=== PATIENT | female | born 1975 | race Caucasian/White ===

== ENCOUNTER → 2017-05-10 | Day surgery (SDC) | payer MEDICAID ==
[~2017-05-10] VITALS: Ht 167.6 cm; Wt 102.5 kg
[~2017-05-10] MED LIST: BUPIVAcaine 0.5% inj/PF 30 ml vial ONE; HYDROcodone/acetaminophen 10/325mg tab PO ONE; MIDAZolam 5mg/5ml vial ONE; VANCOMYCIN INJ 1000 MG in NORMAL SALINE 250ml IV.SOLN IV ONE; acetaminophen 1,000mg/100ml IV 100 ML IV PRN; acetaminophen 325mg tablet PO ONE; cefazolin/dext.iso 2gm/50ml 50 ML IV ONE; celeCOXIB 100mg capsule PO ONE; cloNIDine hcl/PF 100mcg/ml inj ONE; famotidine 20mg tablet PO ONE; fentaNYL/PF 50MCG/1 ML 2ML syringe IV PRN; fentaNYL/PF 50MCG/1 ML 2ML syringe ONE; gabapentin 300mg capsule PO ONE; ketorolac trometh. 30mg/ml inj. ONE; labetalol 5mg/ml 20ml inj. IV PRN; metoclopramide 10mg tablet PO ONE; morphine 4 MG/ML inj SYRINge IV PRN; ondansetron/PF 4mg/2ml inj IV PRN; oxyCODONE SR 10mg (sust. release) tab PO ONE; propofol inj 20 ML IV ONE; ringers solution, lacted 1,000 ML IV SCH; sevoflurane 250ml liquid IH ONE
[2017-05-10 11:20] VITALS: BP 98/78
[2017-05-10 12:06] LABS: BASOPHILS % (AUTO) 0.6 % (0-1); EOSINOPHILS # (AUTO) 0.4 X10'3 (0-0.9); EOSINOPHILS % (AUTO) 5.9 % (0-6); LYMPHOCYTES # (AUTO) 1.5 X10'3 (1.1-4.8); LYMPHOCYTES % (AUTO) 21.4 % (21-51); MEAN CORPUSCULAR HEMOGLOBIN 30.6 PG (27.0-31.0); MEAN CORPUSCULAR HGB CONC 33.7 % (33.0-36.5); MEAN CORPUSCULAR VOLUME 90.8 FL (78-98); MEAN PLATELET VOLUME 8.5 FL (7.4-10.4); MONOCYTES # (AUTO) 0.5 X10'3 (0-0.9); MONOCYTES % (AUTO) 7.3 % (2-12); NEUTROPHILS # (AUTO) 4.4 X10'3 (1.8-7.7); NEUTROPHILS % (AUTO) 64.8 % (42-75); PRE OP HEMATOCRIT 47.5 % (35.0-45.0); PRE OP PLATELET COUNT 259 X10'3 (140-440); RED BLOOD COUNT 5.23 X10'6 (4.20-5.60); RED CELL DISTRIBUTION WIDTH 13.4 % (11.5-14.5)
[2017-05-10 12:30] LABS: ALBUMIN 3.7 G/DL (3.4-5.0); ALBUMIN/GLOBULIN RATIO 1.2 (1.1-1.5); ALKALINE PHOSPHATASE 52 IU/L (46-116); BLOOD UREA NITROGEN 6 MG/DL (7-18); BUN/CREATININE RATIO 9.1 (6.6-38.0); CALCIUM 9.1 MG/DL (8.5-10.1); CHLORIDE 105 MMOL/L (99-107); CREATININE 0.66 MG/DL (0.40-0.90); PRE OP ALT 24 U/L (30-65); PRE OP ANION GAP 9 (8-16); PRE OP AST 14 U/L (10-37); PRE OP BILIRUB, TOTAL 0.4 MG/DL (0.0-1.0); PRE OP GLUCOSE 105 MG/DL (70-104); PRE OP POTASSIUM 3.5 MMOL/L (3.4-5.1); PRE OP SODIUM 142 MMOL/L (135-145); TOTAL PROTEIN 6.9 G/DL (6.4-8.2); eGFR > 90 ML/MIN
[2017-05-10 12:54] VITALS: BP 98/78
[2017-05-10] MEDS: morphine 4 MG/ML inj SYRINge IV PRN ×3 (15:24→15:48)
[2017-05-10] MEDS: fentaNYL/PF 50MCG/1 ML 2ML syringe IV PRN ×2 (15:27→15:31)
[2017-05-10 16:32] VITALS: BP 128/90
[2017-05-10 16:42] VITALS: BP 126/85
[2017-05-10 16:52] VITALS: BP 115/78
[2017-05-10 17:32] VITALS: BP 127/82
== END | disposition home or self-care (01) ==
LOC: PAS 11:06
PROVIDERS: ATTEND Orthopaedic Surgery
DX: S82.61XA Displaced fracture of lateral malleolus of right fibula, initial encounter for closed fracture (principal); F17.210 Nicotine dependence, cigarettes, uncomplicated; I10 Essential (primary) hypertension; M19.90 Unspecified osteoarthritis, unspecified site; F41.9 Anxiety disorder, unspecified; G89.18 Other acute postprocedural pain; E66.9 Obesity, unspecified; Z68.36 Body mass index [BMI] 36.0-36.9, adult; Z88.6 Allergy status to analgesic agent; Z72.89 Other problems related to lifestyle; Z98.890 Other specified postprocedural states; X58.XXXA Exposure to other specified factors, initial encounter; Y93.89 Activity, other specified; Y92.89 Other specified places as the place of occurrence of the external cause; Y99.8 Other external cause status
CPT/HCPCS: 27792; 36415; 64450; 73590; 76001; 80053; 85025; A6222; A6449; C1713; J0131; J0690; J0735; J1885; J2250; J2270; J2704; J3010; J3370; J3490; J7120; J8597; A7000

== ENCOUNTER 2017-05-28 13:39 | Emergency (ER) | payer MEDICAID ==
[~2017-05-28] VITALS: Ht 167.6 cm; Wt 100.0 kg
[2017-05-28 14:46] LABS: BASOPHILS % (AUTO) 0.6 % (0-1); EOSINOPHILS # (AUTO) 0.4 X10'3 (0-0.9); EOSINOPHILS % (AUTO) 4.8 % (0-6); HEMATOCRIT 44.7 % (35.0-45.0); HEMOGLOBIN 15.2 g/dl (12.0-16.0); LYMPHOCYTES # (AUTO) 1.4 X10'3 (1.1-4.8); LYMPHOCYTES % (AUTO) 18.2 % (21-51); MEAN CORPUSCULAR HEMOGLOBIN 30.7 PG (27.0-31.0); MEAN CORPUSCULAR HGB CONC 34.1 % (33.0-36.5); MEAN CORPUSCULAR VOLUME 90.1 FL (78-98); MEAN PLATELET VOLUME 8.8 FL (7.4-10.4); MONOCYTES # (AUTO) 0.7 X10'3 (0-0.9); MONOCYTES % (AUTO) 8.9 % (2-12); NEUTROPHILS # (AUTO) 5.3 X10'3 (1.8-7.7); NEUTROPHILS % (AUTO) 67.5 % (42-75); PLATELET COUNT 303 X10'3 (140-440); RED BLOOD COUNT 4.96 X10'6 (4.20-5.60); RED CELL DISTRIBUTION WIDTH 12.6 % (11.5-14.5); WHITE BLOOD COUNT 7.9 X10'3 (4.5-11.0)
[2017-05-28 14:56] LABS: INR 0.9 INR; PARTIAL THROMBOPLASTIN TIME 27 SECONDS (22-32); PROTHROMBIN TIME 9.8 SECONDS (9.0-12.0)
[2017-05-28 15:09] LABS: ALANINE AMINOTRANSFERASE 22 U/L (12-78); ALBUMIN 3.3 G/DL (3.4-5.0); ALBUMIN/GLOBULIN RATIO 0.8 (1.1-1.5); ALKALINE PHOSPHATASE 60 IU/L (46-116); ANION GAP 9 (8-16); ASPARTATE AMINO TRANSFERASE 20 U/L (10-37); BILIRUBIN,TOTAL 0.3 MG/DL (0.1-1.0); BLOOD UREA NITROGEN 9 MG/DL (7-18); BUN/CREATININE RATIO 14.3 (6.6-38.0); CALCIUM 9.3 MG/DL (8.5-10.1); CHLORIDE 101 MMOL/L (99-107); CREATININE 0.63 MG/DL (0.40-0.90); GLUCOSE 121 MG/DL (70-104); POTASSIUM 3.8 MMOL/L (3.5-5.1); SODIUM 139 MMOL/L (135-145); TOTAL CARBON DIOXIDE 28.8 MMOL/L (24-32); TOTAL PROTEIN 7.5 G/DL (6.4-8.2); eGFR > 90 ML/MIN
[2017-05-28 17:25] VITALS: BP 123/73
[2017-05-28] MEDS ORDERED: SULF1TAB49 PO (17:50)
[2017-05-28] MEDS ORDERED: HYDR-565 PO (17:50)
[2017-05-28] MEDS ORDERED: CEPH500C5 PO (17:50)
[2017-05-28 18:08] LABS: C-REACTIVE PROTEIN 6.68 MG/DL (0.0-0.5)
== END 2017-05-28 18:27 | disposition home or self-care (01) ==
LOC: ER 13:40
DX: M25.571 Pain in right ankle and joints of right foot (principal); M79.671 Pain in right foot; R50.9 Fever, unspecified; I10 Essential (primary) hypertension; Z88.8 Allergy status to other drugs, medicaments and biological substances; Z79.899 Other long term (current) drug therapy
CPT/HCPCS: 36415; 71045; 80053; 83605; 84145; 85025; 85610; 85651; 85730; 86140; 87040; 99285; A6446; A6449

== ENCOUNTER 2017-06-06 10:50 | Inpatient (IN) | payer MEDICAID ==
[~2017-06-06] VITALS: Ht 167.6 cm; Wt 99.7 kg
[~2017-06-06 10:50] MED LIST changes: -BUPIVAcaine 0.5% inj/PF 30 ml vial ONE; +CEPH500C5 PO; +HYDR-565 PO; -HYDROcodone/acetaminophen 10/325mg tab PO ONE; -MIDAZolam 5mg/5ml vial ONE; +SULF1TAB49 PO; -VANCOMYCIN INJ 1000 MG in NORMAL SALINE 250ml IV.SOLN IV ONE; -acetaminophen 1,000mg/100ml IV 100 ML IV PRN; -acetaminophen 325mg tablet PO ONE; -cefazolin/dext.iso 2gm/50ml 50 ML IV ONE; -celeCOXIB 100mg capsule PO ONE; -cloNIDine hcl/PF 100mcg/ml inj ONE; -famotidine 20mg tablet PO ONE; -fentaNYL/PF 50MCG/1 ML 2ML syringe IV PRN; -fentaNYL/PF 50MCG/1 ML 2ML syringe ONE; -gabapentin 300mg capsule PO ONE; -ketorolac trometh. 30mg/ml inj. ONE; -labetalol 5mg/ml 20ml inj. IV PRN; -metoclopramide 10mg tablet PO ONE; -morphine 4 MG/ML inj SYRINge IV PRN; -ondansetron/PF 4mg/2ml inj IV PRN; -oxyCODONE SR 10mg (sust. release) tab PO ONE; -propofol inj 20 ML IV ONE; -ringers solution, lacted 1,000 ML IV SCH; -sevoflurane 250ml liquid IH ONE
[2017-06-07] VITALS (17 sets, daily range): BP systolic 92–117; BP diastolic 50–82
[2017-06-07] MEDS ORDERED: ringers solution, lacted 1,000 ML IV SCH ×3 (05:00→15:33)
[2017-06-07] MEDS ORDERED: albuterol 2.5 MG/3 ML nebule NEB ONE (05:30)
[2017-06-07] MEDS ORDERED: famotidine 20mg tablet PO ONE (05:30)
[2017-06-07] MEDS ORDERED: ondansetron/PF 4mg/2ml inj IV PRN ×2 (07:25→15:35)
[2017-06-07] MEDS ORDERED: MORPHINE 2MG in 2ml NS syringe IV PRN (07:25)
[2017-06-07] MEDS ORDERED: diphenhydrAMINE 25mg capsule PO PRN (07:25)
[2017-06-07] MEDS ORDERED: acetaminophen 325mg tablet PO PRN (07:25)
[2017-06-07] MEDS ORDERED: bisacodyl 10mg suppository rectal RC PRN (07:25)
[2017-06-07] MEDS ORDERED: magnesium hydroxide 30ml (MOM) UD suspension PO PRN (07:25)
[2017-06-07] MEDS ORDERED: cefazolin/dext.iso 2gm/50ml 50 ML IV SCH (08:00)
[2017-06-07] MEDS ORDERED: acetaminophen 325mg tablet PO ONE (09:44)
[2017-06-07] MEDS ORDERED: vancomycin 1,000mg inj ONE ×2 (12:18→14:08)
[2017-06-07] MEDS ORDERED: BUPIVAcaine/PF 2.5 mg/ml (0.25%) 30ml vial ONE (14:08)
[2017-06-07] MEDS ORDERED: midazolam 2 mg/2 ml injection ONE (14:12)
[2017-06-07] MEDS ORDERED: cloNIDine hcl/PF 100mcg/ml inj ONE (14:18)
[2017-06-07] MEDS ORDERED: sevoflurane 250ml liquid IH ONE (14:40)
[2017-06-07] MEDS ORDERED: MIDAZolam 5mg/5ml vial ONE (14:52)
[2017-06-07] MEDS ORDERED: fentaNYL/PF 50MCG/1 ML 2ML syringe ONE (14:52)
[2017-06-07] MEDS ORDERED: proCHLORperazine 10 MG/2 ml inj IV PRN (15:35)
[2017-06-07] MEDS ORDERED: morphine 4 MG/ML inj SYRINge IV PRN ×2 (15:35)
[2017-06-07] MEDS ORDERED: ondansetron/PF 4mg/2ml inj ONE (15:45)
[2017-06-07] MEDS ORDERED: dexamethasone sod phosphate 4mg/ml inj. ONE (15:45)
[2017-06-07] MEDS ORDERED: propofol inj 20 ML IV ONE (15:45)
[2017-06-07] MEDS: oxyCODONE/APAP 10/325mg tablet PO PRN ×2 (17:04→21:41)
[2017-06-07] MEDS: ketorolac tromethamine 15mg/ml inj. IV SCH ×3 (17:29→20:03)
[2017-06-07] MEDS: potassium cl 20mEq in 1/2 NS 1,000 ML IV SCH ×3 (17:29→18:46)
[2017-06-07] MEDS: multivitamins, therapeutics tablet PO SCH (17:30)
[2017-06-07] MEDS: gabapentin 300mg capsule PO SCH ×3 (17:30→20:03)
[2017-06-07] MEDS: ascorbic acid 500mg tablet PO SCH ×2 (17:30→20:03)
[2017-06-07] MEDS: aspirin 325mg tablet PO SCH (17:31)
[2017-06-07] MEDS: sennosides 8.6mg tablet PO SCH (20:03)
[2017-06-07] MEDS: ceFAZolin 2gm in dextrose, iso 100 ML IV SCH (23:52)
[2017-06-07] MEDS: diphenhydrAMINE 25mg capsule PO PRN (23:58)
[2017-06-08] VITALS (7 sets, daily range): BP systolic 100–128; BP diastolic 54–79
[2017-06-08] MEDS: ketorolac tromethamine 15mg/ml inj. IV SCH ×3 (02:07→13:55)
[2017-06-08] MEDS: oxyCODONE/APAP 10/325mg tablet PO PRN ×6 (02:17→23:37)
[2017-06-08] MEDS: potassium cl 20mEq in 1/2 NS 1,000 ML IV SCH ×3 (05:09→23:25)
[2017-06-08 06:44] LABS: BASOPHILS % (AUTO) 0.1 % (0-1); EOSINOPHILS # (AUTO) 0.2 X10'3 (0-0.9); EOSINOPHILS % (AUTO) 1.5 % (0-6); HEMATOCRIT 40.5 % (35.0-45.0); HEMOGLOBIN 13.9 g/dl (12.0-16.0); LYMPHOCYTES # (AUTO) 0.9 X10'3 (1.1-4.8); LYMPHOCYTES % (AUTO) 8.1 % (21-51); MEAN CORPUSCULAR HEMOGLOBIN 30.8 PG (27.0-31.0); MEAN CORPUSCULAR HGB CONC 34.4 % (33.0-36.5); MEAN CORPUSCULAR VOLUME 89.4 FL (78-98); MONOCYTES # (AUTO) 0.1 X10'3 (0-0.9); MONOCYTES % (AUTO) 1.3 % (2-12); NEUTROPHILS # (AUTO) 9.5 X10'3 (1.8-7.7); PLATELET COUNT 256 X10'3 (140-440); RED BLOOD COUNT 4.53 X10'6 (4.20-5.60); RED CELL DISTRIBUTION WIDTH 12.9 % (11.5-14.5); WHITE BLOOD COUNT 10.7 X10'3 (4.5-11.0)
[2017-06-08 06:59] LABS: ANION GAP 9 (8-16); CHLORIDE 102 MMOL/L (99-107); POTASSIUM 4.6 MMOL/L (3.5-5.1); SODIUM 137 MMOL/L (135-145); TOTAL CARBON DIOXIDE 25.6 MMOL/L (24-32)
[2017-06-08] MEDS: multivitamins, therapeutics tablet PO SCH (08:12)
[2017-06-08] MEDS: gabapentin 300mg capsule PO SCH ×3 (08:12→19:34)
[2017-06-08] MEDS: aspirin 325mg tablet PO SCH (08:12)
[2017-06-08] MEDS: nicotine 21mg patch - 24 hr TD SCH (08:12)
[2017-06-08] MEDS: ascorbic acid 500mg tablet PO SCH ×2 (08:12→19:34)
[2017-06-08 08:57] LABS: ALANINE AMINOTRANSFERASE 20 U/L (12-78); ALBUMIN 3.1 G/DL (3.4-5.0); ALBUMIN/GLOBULIN RATIO 0.9 (1.1-1.5); ALKALINE PHOSPHATASE 51 IU/L (46-116); ASPARTATE AMINO TRANSFERASE 17 U/L (10-37); BILIRUBIN,TOTAL 0.3 MG/DL (0.1-1.0); BLOOD UREA NITROGEN 13 MG/DL (7-18); BUN/CREATININE RATIO 17.6 (6.6-38.0); CALCIUM 8.7 MG/DL (8.5-10.1); CREATININE 0.74 MG/DL (0.40-0.90); GLUCOSE 153 MG/DL (70-104); TOTAL PROTEIN 6.6 G/DL (6.4-8.2); eGFR 86 ML/MIN
[2017-06-08] MEDS: ceFAZolin 2gm in dextrose, iso 100 ML IV SCH ×2 (09:40→16:37)
[2017-06-08] MEDS ORDERED: VANCOMYCIN LEVEL IV ONE (10:30)
[2017-06-08] MEDS: vancomycin inj 1,250 MG in normal saline 250ml IV soln 250 ML IV SCH ×2 (10:57→19:34)
[2017-06-08] MEDS: lactobacillus rhamnosus 10,000 MMU CELLS/CAPSULE PO SCH (19:34)
[2017-06-08] MEDS: sennosides 8.6mg tablet PO SCH (19:36)
[2017-06-08] MEDS: diphenhydrAMINE 25mg capsule PO PRN (22:22)
[2017-06-09] MEDS: ceFAZolin 2gm in dextrose, iso 100 ML IV SCH ×4 (00:06→23:11)
[2017-06-09] MEDS: vancomycin inj 1,250 MG in normal saline 250ml IV soln 250 ML IV SCH ×3 (03:07→20:27)
[2017-06-09] MEDS: oxyCODONE/APAP 10/325mg tablet PO PRN ×5 (03:32→22:50)
[2017-06-09] MEDS: morphine 4 MG/ML inj SYRINge IV PRN ×4 (05:15→21:49)
[2017-06-09 05:36] LABS: BASOPHILS % (AUTO) 0.1 % (0-1); EOSINOPHILS # (AUTO) 0.2 X10'3 (0-0.9); EOSINOPHILS % (AUTO) 2.2 % (0-6); HEMATOCRIT 35.2 % (35.0-45.0); HEMOGLOBIN 11.9 g/dl (12.0-16.0); LYMPHOCYTES # (AUTO) 2.6 X10'3 (1.1-4.8); LYMPHOCYTES % (AUTO) 28.5 % (21-51); MEAN CORPUSCULAR HEMOGLOBIN 30.2 PG (27.0-31.0); MEAN CORPUSCULAR HGB CONC 33.6 % (33.0-36.5); MEAN CORPUSCULAR VOLUME 89.7 FL (78-98); MEAN PLATELET VOLUME 9.3 FL (7.4-10.4); MONOCYTES # (AUTO) 0.5 X10'3 (0-0.9); MONOCYTES % (AUTO) 5.4 % (2-12); NEUTROPHILS # (AUTO) 5.8 X10'3 (1.8-7.7); NEUTROPHILS % (AUTO) 63.8 % (42-75); PLATELET COUNT 208 X10'3 (140-440); RED BLOOD COUNT 3.93 X10'6 (4.20-5.60); RED CELL DISTRIBUTION WIDTH 12.8 % (11.5-14.5); WHITE BLOOD COUNT 9.1 X10'3 (4.5-11.0)
[2017-06-09 06:00] VITALS: BP 119/81
[2017-06-09 06:38] LABS: ALANINE AMINOTRANSFERASE 19 U/L (12-78); ALBUMIN 2.6 G/DL (3.4-5.0); ALKALINE PHOSPHATASE 40 IU/L (46-116); ANION GAP 10 (8-16); ASPARTATE AMINO TRANSFERASE 11 U/L (10-37); BILIRUBIN,TOTAL 0.2 MG/DL (0.1-1.0); BLOOD UREA NITROGEN 13 MG/DL (7-18); BUN/CREATININE RATIO 16.9 (6.6-38.0); CALCIUM 8.2 MG/DL (8.5-10.1); CHLORIDE 107 MMOL/L (99-107); CREATININE 0.77 MG/DL (0.40-0.90); GLUCOSE 98 MG/DL (70-104); POTASSIUM 4.5 MMOL/L (3.5-5.1); SODIUM 143 MMOL/L (135-145); TOTAL CARBON DIOXIDE 25.8 MMOL/L (24-32); TOTAL PROTEIN 5.3 G/DL (6.4-8.2); eGFR 82 ML/MIN
[2017-06-09] MEDS: lactobacillus rhamnosus 10,000 MMU CELLS/CAPSULE PO SCH ×2 (08:11→20:28)
[2017-06-09] MEDS: gabapentin 300mg capsule PO SCH ×3 (08:11→20:28)
[2017-06-09] MEDS: multivitamins, therapeutics tablet PO SCH (08:12)
[2017-06-09] MEDS: ascorbic acid 500mg tablet PO SCH ×2 (08:12→20:28)
[2017-06-09] MEDS: aspirin 325mg tablet PO SCH (08:12)
[2017-06-09] MEDS: nicotine 21mg patch - 24 hr TD SCH (08:12)
[2017-06-09 10:00] VITALS: BP 90/57
[2017-06-09] MEDS ORDERED: VANCOMYCIN LEVEL IV ONE (10:30)
[2017-06-09 17:00] VITALS: BP 95/63
[2017-06-09] MEDS ORDERED: tPA-cathflo 2 MG/2 ml IV flush IVF ONE (19:20)
[2017-06-09] MEDS: sennosides 8.6mg tablet PO SCH (20:28)
[2017-06-09 22:00] VITALS: BP 100/56
[2017-06-10] MEDS: morphine 4 MG/ML inj SYRINge IV PRN ×2 (02:18→07:14)
[2017-06-10] MEDS ORDERED: VANCOMYCIN LEVEL IV ONE (02:30)
[2017-06-10 02:40] LABS: BASOPHILS # (AUTO) 0.1 X10'3 (0-0.2); BASOPHILS % (AUTO) 0.8 % (0-1); EOSINOPHILS # (AUTO) 0.5 X10'3 (0-0.9); EOSINOPHILS % (AUTO) 5.1 % (0-6); HEMATOCRIT 35.8 % (35.0-45.0); LYMPHOCYTES # (AUTO) 2.8 X10'3 (1.1-4.8); LYMPHOCYTES % (AUTO) 30.4 % (21-51); MEAN CORPUSCULAR HEMOGLOBIN 30.3 PG (27.0-31.0); MEAN CORPUSCULAR HGB CONC 33.5 % (33.0-36.5); MEAN CORPUSCULAR VOLUME 90.2 FL (78-98); MEAN PLATELET VOLUME 9.2 FL (7.4-10.4); MONOCYTES # (AUTO) 0.6 X10'3 (0-0.9); MONOCYTES % (AUTO) 6.1 % (2-12); NEUTROPHILS # (AUTO) 5.3 X10'3 (1.8-7.7); NEUTROPHILS % (AUTO) 57.6 % (42-75); PLATELET COUNT 162 X10'3 (140-440); RED BLOOD COUNT 3.97 X10'6 (4.20-5.60); WHITE BLOOD COUNT 9.2 X10'3 (4.5-11.0)
[2017-06-10 02:53] LABS: LARGE PLATELETS FEW; PLATELET ESTIMATE NORMAL
[2017-06-10 02:57] LABS: ALBUMIN 2.7 G/DL (3.4-5.0); ANION GAP 5 (8-16); BLOOD UREA NITROGEN 13 MG/DL (7-18); CALCIUM 8.2 MG/DL (8.5-10.1); CHLORIDE 105 MMOL/L (99-107); CREATININE 0.62 MG/DL (0.40-0.90); GLUCOSE 109 MG/DL (70-104); POTASSIUM 4.2 MMOL/L (3.5-5.1); SODIUM 141 MMOL/L (135-145); TOTAL CARBON DIOXIDE 31.3 MMOL/L (24-32); eGFR > 90 ML/MIN
[2017-06-10] MEDS: vancomycin inj 1,250 MG in normal saline 250ml IV soln 250 ML IV SCH ×3 (03:25→21:31)
[2017-06-10] MEDS: oxyCODONE/APAP 10/325mg tablet PO PRN ×5 (03:52→21:31)
[2017-06-10 06:00] VITALS: BP 101/68
[2017-06-10] MEDS: gabapentin 300mg capsule PO SCH ×3 (07:13→21:31)
[2017-06-10] MEDS: ascorbic acid 500mg tablet PO SCH ×2 (07:13→21:30)
[2017-06-10] MEDS: ceFAZolin 2gm in dextrose, iso 100 ML IV SCH ×3 (07:13→23:41)
[2017-06-10] MEDS: lactobacillus rhamnosus 10,000 MMU CELLS/CAPSULE PO SCH ×2 (07:13→21:30)
[2017-06-10] MEDS: multivitamins, therapeutics tablet PO SCH (07:13)
[2017-06-10] MEDS: nicotine 21mg patch - 24 hr TD SCH (07:14)
[2017-06-10] MEDS: aspirin 325mg tablet PO SCH (07:14)
[2017-06-10 10:00] VITALS: BP 95/55
[2017-06-10 18:00] VITALS: BP 86/55
[2017-06-10] MEDS: sennosides 8.6mg tablet PO SCH (21:31)
[2017-06-10 22:00] VITALS: BP 120/56
[2017-06-11] MEDS: oxyCODONE/APAP 10/325mg tablet PO PRN ×5 (02:03→14:43)
[2017-06-11] MEDS: vancomycin inj 1,250 MG in normal saline 250ml IV soln 250 ML IV SCH ×2 (03:34→11:10)
[2017-06-11 06:00] VITALS: BP 117/80
[2017-06-11 06:49] LABS: ALBUMIN 2.8 G/DL (3.4-5.0); ANION GAP 5 (8-16); BLOOD UREA NITROGEN 7 MG/DL (7-18); BUN/CREATININE RATIO 9.5 (6.6-38.0); CALCIUM 8.6 MG/DL (8.5-10.1); CHLORIDE 104 MMOL/L (99-107); CREATININE 0.74 MG/DL (0.40-0.90); GLUCOSE 88 MG/DL (70-104); POTASSIUM 4.2 MMOL/L (3.5-5.1); SODIUM 143 MMOL/L (135-145); TOTAL CARBON DIOXIDE 33.8 MMOL/L (24-32); eGFR 86 ML/MIN
[2017-06-11] MEDS: ceFAZolin 2gm in dextrose, iso 100 ML IV SCH (09:42)
[2017-06-11] MEDS: nicotine 21mg patch - 24 hr TD SCH (09:43)
[2017-06-11] MEDS: ascorbic acid 500mg tablet PO SCH (09:43)
[2017-06-11] MEDS: gabapentin 300mg capsule PO SCH ×2 (09:43→13:52)
[2017-06-11] MEDS: aspirin 325mg tablet PO SCH (09:43)
[2017-06-11] MEDS: lactobacillus rhamnosus 10,000 MMU CELLS/CAPSULE PO SCH (09:43)
[2017-06-11] MEDS: multivitamins, therapeutics tablet PO SCH (09:43)
[2017-06-11 11:11] VITALS: BP 116/83
[2017-06-11] MEDS ORDERED: PER10325T PO (11:45)
[2017-06-11] MEDS ORDERED: cefazolin/dext.iso 2gm/50ml 50 ML IV SCH (11:52)
[2017-06-11] MEDS ORDERED: ceFAZolin 2gm in dextrose, iso 100 ML IV SCH (13:00)
[2017-06-11] MEDS ORDERED: CefTRIAXone 2gm/D5W 50ml 50 ML IV ONE (13:10)
[2017-06-11] MEDS ORDERED: morphine 10mg/ml inj. IV PRN (14:18)
== END 2017-06-11 18:30 | disposition home or self-care (01) | DRG 711 ==
LOC: EDSTATUS 10:50 → PAS IN 06-07 10:22 → EDSTATUS 06-07 13:00 → ORTHO 4S 06-07 17:21
PROVIDERS: ADMIT Orthopaedic Surgery; ATTEND Orthopaedic Surgery
PROC: 0SPF04Z Removal of Internal Fixation Device from Right Ankle Joint, Open Approach (ICD-10-PCS; principal; 2017-06-07 14:40)
PROC: 02HV33Z Insertion of Infusion Device into Superior Vena Cava, Percutaneous Approach (ICD-10-PCS; 2017-06-08)
DX: T81.4XXA Infection following a procedure, initial encounter (principal); T81.30XA Disruption of wound, unspecified, initial encounter; M86.8X7 Other osteomyelitis, ankle and foot; I10 Essential (primary) hypertension; Z79.82 Long term (current) use of aspirin; Z98.51 Tubal ligation status; Z88.8 Allergy status to other drugs, medicaments and biological substances; Z79.899 Other long term (current) drug therapy; Z91.19 Patient's noncompliance with other medical treatment and regimen; Y83.8 Other surgical procedures as the cause of abnormal reaction of the patient, or of later complication, without mention of misadventure at the time of the procedure; Y92.89 Other specified places as the place of occurrence of the external cause
CPT/HCPCS: 36415; 36569; 76937; 80048; 80053; 80202; 85025; 87070; 87075; 87077; 87186; 97110; 97116; 97161; 97530; A6223; A6449; A7000; J0690; J0696; J0735; J1100; J1885; J2250; J2270; J2405; J2704; J2997; J3010; J3370; J3490; J7030; J7120; Q0163

== ENCOUNTER 2017-06-15 19:22 | Emergency (ER) | payer MEDICAID ==
[~2017-06-15] VITALS: Ht 167.6 cm; Wt 85.2 kg
[~2017-06-15 19:22] MED LIST changes: -CEPH500C5 PO; +PER10325T PO; -SULF1TAB49 PO
[2017-06-15 19:26] VITALS: BP 136/117
[2017-06-15] MEDS ORDERED: ketorolac trometh inj. 60 MG/2 ML VIAL IM ONE (20:00)
== END 2017-06-15 20:34 | disposition home or self-care (01) ==
LOC: ER 19:22
DX: M25.571 Pain in right ankle and joints of right foot (principal); I10 Essential (primary) hypertension; Z98.890 Other specified postprocedural states; Z88.8 Allergy status to other drugs, medicaments and biological substances
CPT/HCPCS: 73610; 96372; 99284; A6449; J1885

== ENCOUNTER 2017-08-02 16:15 | Inpatient (IN) | payer MEDICAID ==
[~2017-08-02] VITALS: Ht 167.6 cm; Wt 92.4 kg
[~2017-08-02 16:15] MED LIST changes: -HYDR-565 PO
[2017-08-02 16:57] LABS: BASOPHILS % (AUTO) 0.1 % (0-1); EOSINOPHILS # (AUTO) 0.1 X10'3 (0-0.9); EOSINOPHILS % (AUTO) 0.7 % (0-6); HEMATOCRIT 43.6 % (35.0-45.0); HEMOGLOBIN 14.7 g/dl (12.0-16.0); LYMPHOCYTES # (AUTO) 0.5 X10'3 (1.1-4.8); LYMPHOCYTES % (AUTO) 3.9 % (21-51); MEAN CORPUSCULAR HEMOGLOBIN 30.5 PG (27.0-31.0); MEAN CORPUSCULAR HGB CONC 33.7 % (33.0-36.5); MEAN CORPUSCULAR VOLUME 90.5 FL (78-98); MEAN PLATELET VOLUME 8.3 FL (7.4-10.4); MONOCYTES # (AUTO) 0.7 X10'3 (0-0.9); MONOCYTES % (AUTO) 5.3 % (2-12); PLATELET COUNT 164 X10'3 (140-440); RED BLOOD COUNT 4.81 X10'6 (4.20-5.60); RED CELL DISTRIBUTION WIDTH 15.2 % (11.5-14.5); WHITE BLOOD COUNT 12.2 X10'3 (4.5-11.0)
[2017-08-02 17:06] LABS: INR 1.1 INR; PARTIAL THROMBOPLASTIN TIME 28 SECONDS (22-32); PROTHROMBIN TIME 11.8 SECONDS (9.0-12.0)
[2017-08-02 17:11] LABS: ALANINE AMINOTRANSFERASE 22 U/L (12-78); ALBUMIN 3.3 G/DL (3.4-5.0); ALBUMIN/GLOBULIN RATIO 0.9 (1.1-1.5); ALKALINE PHOSPHATASE 77 IU/L (46-116); ANION GAP 10 (8-16); ASPARTATE AMINO TRANSFERASE 16 U/L (10-37); BILIRUBIN,TOTAL 0.7 MG/DL (0.1-1.0); BLOOD UREA NITROGEN 8 MG/DL (7-18); BUN/CREATININE RATIO 8.8 (6.6-38.0); CALCIUM 8.2 MG/DL (8.5-10.1); CHLORIDE 94 MMOL/L (99-107); CREATININE 0.91 MG/DL (0.40-0.90); GLUCOSE 179 MG/DL (70-104); SODIUM 132 MMOL/L (135-145); TOTAL CARBON DIOXIDE 27.6 MMOL/L (24-32); TOTAL PROTEIN 6.8 G/DL (6.4-8.2); eGFR 67 ML/MIN
[2017-08-02 17:12] LABS: CLARITY,URINE CLOUDY (Clear); COLOR,URINE YELLOW (Yellow); GLUCOSE, URINE NEGATIVE (Neg); KETONES,URINE 15 mg/dl (Neg); LEUKOCYTE ESTERASE ,URINE NEGATIVE (Neg); NITRITES, URINE NEGATIVE (Neg); OCCULT BLOOD,URINE TRACE-INTACT (Neg); PROTEIN,URINE 100 mg/dl (Neg)
[2017-08-02 17:13] LABS: POTASSIUM 2.5 MMOL/L (3.5-5.1)
[2017-08-02 17:13] LABS: UA COLLECTION TYPE STRAIGHT CATH
[2017-08-02] MEDS ORDERED: potassium Cl 20 mEq SR tablet PO STA (17:16)
[2017-08-02 17:17] LABS: PLATELET ESTIMATE NORMAL; TOTAL CELLS COUNTED 100
[2017-08-02] MEDS ORDERED: potassium 10mEq/100ml NS w/LIDOcaine (10mg/bag) IV ONE (17:20)
[2017-08-02] MEDS ORDERED: piperacillin/tazo 3.375gm/50ml 50 ML IV ONE (17:20)
[2017-08-02] MEDS ORDERED: normal saline 1000ML IV soln IV ONE (17:20)
[2017-08-02] MEDS ORDERED: vancomycin/NS 1 GM ADD-VANTAGE 250 ML IV ONE (17:20)
[2017-08-02 17:30] LABS: MUCUS STRANDS MANY /LPF (Neg); SQUAMOUS EPITHELIAL CELL,UR MANY /LPF (FEW)
[2017-08-02 17:33] LABS: BACTERIA,URINE FEW /HPF (Neg); RBC,URINE 0-2 /HPF (0-2); WBC,URINE 0-4 /HPF (0-4)
[2017-08-02] MEDS ORDERED: magnesium hydroxide 30ml (MOM) UD suspension PO PRN (18:05)
[2017-08-02] MEDS ORDERED: magnesium 2GM in 50ml NS 50 ML IV PRN (18:05)
[2017-08-02] MEDS ORDERED: potassium Cl 40MEQ/NS 500ml 500 ML IV PRN ×2 (18:05)
[2017-08-02] MEDS ORDERED: magnesium 4gm in 100ml NS 100 ML IV PRN (18:05)
[2017-08-02] MEDS: K and/or MAG REPLACEMENT MC SCH (18:05)
[2017-08-02] MEDS ORDERED: ondansetron/PF 4mg/2ml inj IV PRN (18:05)
[2017-08-02] MEDS ORDERED: potassium Cl 20 mEq SR tablet PO PRN ×2 (18:05)
[2017-08-02] MEDS ORDERED: mag hydrox/Alum hydrox/simeth 30ml oral suspension PO PRN (18:05)
[2017-08-02] MEDS: normal saline 1000ml 1,000 ML IV SCH ×2 (18:13→23:25)
[2017-08-02 18:29] LABS: URINE AMPHETAMINE SCREEN POSITIVE (Neg); URINE BARBITUATE SCREEN NEGATIVE (Neg); URINE BENZODIAZEPINES SCREEN NEGATIVE (Neg); URINE CANNABINOID SCREEN POSITIVE (Neg); URINE COCAINE SCREEN NEGATIVE (Neg); URINE METHADONE SCREEN NEGATIVE (Neg); URINE OPIATE SCREEN NEGATIVE (Neg); URINE PHENCYCLIDINE SCREEN NEGATIVE (Neg)
[2017-08-02] MEDS: CefTRIAXone/D5W-Rocephin 1gm 50 ML IV SCH (18:45)
[2017-08-02] MEDS: acetaminophen 325mg tablet PO PRN (19:43)
[2017-08-02 20:00] VITALS: BP 133/74
[2017-08-02] MEDS ORDERED: vancomycin/NS 1 GM ADD-VANTAGE 250 ML IV SCH (20:00)
[2017-08-02] MEDS: heparin, porcine 5000 units/ml vial SQ SCH (20:00)
[2017-08-02] MEDS ORDERED: potassium Cl 40MEQ/NS 500ml 500 ML IV ONE (23:58)
[2017-08-02] MEDS ORDERED: LIDOcaine 4% LTA kit 4ml solution TP ONE (23:59)
[2017-08-03 00:20] VITALS: BP 115/55
[2017-08-03] MEDS: acetaminophen 325mg tablet PO PRN ×2 (03:28→17:21)
[2017-08-03 05:33] LABS: BASOPHILS % (AUTO) 0.1 % (0-1); EOSINOPHILS % (AUTO) 0.1 % (0-6); HEMATOCRIT 44.2 % (35.0-45.0); HEMOGLOBIN 14.5 g/dl (12.0-16.0); LYMPHOCYTES # (AUTO) 0.6 X10'3 (1.1-4.8); LYMPHOCYTES % (AUTO) 6.7 % (21-51); MEAN CORPUSCULAR HEMOGLOBIN 30.1 PG (27.0-31.0); MEAN CORPUSCULAR HGB CONC 32.8 % (33.0-36.5); MEAN CORPUSCULAR VOLUME 91.6 FL (78-98); MEAN PLATELET VOLUME 9.1 FL (7.4-10.4); MONOCYTES # (AUTO) 0.5 X10'3 (0-0.9); NEUTROPHILS # (AUTO) 8.5 X10'3 (1.8-7.7); NEUTROPHILS % (AUTO) 88.1 % (42-75); PLATELET COUNT 144 X10'3 (140-440); RED BLOOD COUNT 4.83 X10'6 (4.20-5.60); RED CELL DISTRIBUTION WIDTH 14.3 % (11.5-14.5); WHITE BLOOD COUNT 9.6 X10'3 (4.5-11.0)
[2017-08-03 06:04] LABS: ALANINE AMINOTRANSFERASE 19 U/L (12-78); ALBUMIN 2.7 G/DL (3.4-5.0); ALBUMIN/GLOBULIN RATIO 0.9 (1.1-1.5); ALKALINE PHOSPHATASE 64 IU/L (46-116); ANION GAP 10 (8-16); ASPARTATE AMINO TRANSFERASE 17 U/L (10-37); BILIRUBIN,TOTAL 0.5 MG/DL (0.1-1.0); BLOOD UREA NITROGEN 5 MG/DL (7-18); BUN/CREATININE RATIO 6.3 (6.6-38.0); CALCIUM 7.8 MG/DL (8.5-10.1); CHLORIDE 102 MMOL/L (99-107); CREATININE 0.79 MG/DL (0.40-0.90); GLUCOSE 96 MG/DL (70-104); MAGNESIUM 1.3 MG/DL (1.5-2.4); POTASSIUM 3.4 MMOL/L (3.5-5.1); SODIUM 138 MMOL/L (135-145); TOTAL CARBON DIOXIDE 25.8 MMOL/L (24-32); TOTAL PROTEIN 5.8 G/DL (6.4-8.2); eGFR 79 ML/MIN
[2017-08-03 07:00] VITALS: BP 112/67
[2017-08-03] MEDS: K and/or MAG REPLACEMENT MC SCH (08:00)
[2017-08-03] MEDS: normal saline 1000ml 1,000 ML IV SCH ×2 (08:42→18:41)
[2017-08-03] MEDS: CefTRIAXone/D5W-Rocephin 1gm 50 ML IV SCH (08:44)
[2017-08-03] MEDS: heparin, porcine 5000 units/ml vial SQ SCH ×2 (08:47→19:44)
[2017-08-03] MEDS: vancomycin inj 1,250 MG in normal saline 250ml IV soln 250 ML IV SCH ×2 (10:25→18:41)
[2017-08-03] MEDS: HYDROmorphone 1 mg/ml syringe IV PRN ×3 (10:26→23:50)
[2017-08-03 12:00] VITALS: BP 101/67
[2017-08-03 18:00] VITALS: BP 95/50
[2017-08-04] VITALS: BP 118/72
[2017-08-04] MEDS ORDERED: ketorolac tromethamine 15mg/ml inj. IV ONE (01:45)
[2017-08-04] MEDS: normal saline 1000ml 1,000 ML IV SCH ×2 (02:03→09:33)
[2017-08-04] MEDS: vancomycin inj 1,250 MG in normal saline 250ml IV soln 250 ML IV SCH ×2 (02:29→09:24)
[2017-08-04 07:11] VITALS: BP 101/60
[2017-08-04] MEDS: K and/or MAG REPLACEMENT MC SCH (08:00)
[2017-08-04] MEDS: heparin, porcine 5000 units/ml vial SQ SCH ×2 (09:25→19:51)
[2017-08-04] MEDS: HYDROmorphone 1 mg/ml syringe IV PRN ×3 (09:25→19:51)
[2017-08-04] MEDS ORDERED: VANCOMYCIN LEVEL IV ONE (09:30)
[2017-08-04 09:51] LABS: BASOPHILS % (AUTO) 0.3 % (0-1); EOSINOPHILS # (AUTO) 0.2 X10'3 (0-0.9); EOSINOPHILS % (AUTO) 4.2 % (0-6); HEMATOCRIT 38.6 % (35.0-45.0); HEMOGLOBIN 13.1 g/dl (12.0-16.0); LYMPHOCYTES # (AUTO) 0.4 X10'3 (1.1-4.8); LYMPHOCYTES % (AUTO) 8.4 % (21-51); MEAN CORPUSCULAR HEMOGLOBIN 30.8 PG (27.0-31.0); MEAN CORPUSCULAR HGB CONC 33.9 % (33.0-36.5); MEAN PLATELET VOLUME 8.8 FL (7.4-10.4); MONOCYTES # (AUTO) 0.5 X10'3 (0-0.9); MONOCYTES % (AUTO) 10.3 % (2-12); NEUTROPHILS % (AUTO) 76.8 % (42-75); PLATELET COUNT 112 X10'3 (140-440); RED BLOOD COUNT 4.24 X10'6 (4.20-5.60); RED CELL DISTRIBUTION WIDTH 15.6 % (11.5-14.5); WHITE BLOOD COUNT 5.2 X10'3 (4.5-11.0)
[2017-08-04 10:05] LABS: ALANINE AMINOTRANSFERASE 26 U/L (12-78); ALBUMIN 2.1 G/DL (3.4-5.0); ALBUMIN/GLOBULIN RATIO 0.7 (1.1-1.5); ALKALINE PHOSPHATASE 61 IU/L (46-116); ANION GAP 8 (8-16); ASPARTATE AMINO TRANSFERASE 30 U/L (10-37); BILIRUBIN,TOTAL 0.2 MG/DL (0.1-1.0); BLOOD UREA NITROGEN 8 MG/DL (7-18); BUN/CREATININE RATIO 12.3 (6.6-38.0); CALCIUM 7.8 MG/DL (8.5-10.1); CHLORIDE 105 MMOL/L (99-107); CREATININE 0.65 MG/DL (0.40-0.90); GLUCOSE 136 MG/DL (70-104); POTASSIUM 3.1 MMOL/L (3.5-5.1); SODIUM 140 MMOL/L (135-145); TOTAL CARBON DIOXIDE 27.2 MMOL/L (24-32); TOTAL PROTEIN 5.3 G/DL (6.4-8.2); eGFR > 90 ML/MIN
[2017-08-04 10:08] LABS: MAGNESIUM 1.5 MG/DL (1.5-2.4); TROPONIN I < 0.04 NG/ML (0.0-0.05); VANCOMYCIN,TROUGH 12.5 UG/ML (6.0-14.0)
[2017-08-04] MEDS ORDERED: albuterol 2.5 MG/3 ML nebule NEB PRN (11:35)
[2017-08-04] MEDS ORDERED: LIDOcaine 1% 30ml vial 5 ML in potassium Cl 40MEQ/NS 500ml 500 ML IV ONE (12:50)
[2017-08-04 13:11] VITALS: BP 94/62
[2017-08-04] MEDS ORDERED: nicotine 14mg patch - 24hr TD ONE (17:00)
[2017-08-04 18:00] VITALS: BP 141/88
[2017-08-04] MEDS: lactobacillus rhamnosus 10,000 MMU CELLS/CAPSULE PO SCH (19:50)
[2017-08-04] MEDS: acetaminophen 325mg tablet PO PRN (20:45)
[2017-08-05] VITALS: BP 103/66
[2017-08-05] MEDS: HYDROmorphone 1 mg/ml syringe IV PRN ×4 (00:06→19:53)
[2017-08-05 06:15] LABS: ALANINE AMINOTRANSFERASE 27 U/L (12-78); ALBUMIN 2.2 G/DL (3.4-5.0); ALBUMIN/GLOBULIN RATIO 0.6 (1.1-1.5); ALKALINE PHOSPHATASE 66 IU/L (46-116); ANION GAP 11 (8-16); ASPARTATE AMINO TRANSFERASE 31 U/L (10-37); BILIRUBIN,TOTAL 0.2 MG/DL (0.1-1.0); BLOOD UREA NITROGEN 5 MG/DL (7-18); BUN/CREATININE RATIO 7.4 (6.6-38.0); CALCIUM 8.2 MG/DL (8.5-10.1); CHLORIDE 104 MMOL/L (99-107); CREATININE 0.68 MG/DL (0.40-0.90); GLUCOSE 134 MG/DL (70-104); MAGNESIUM 1.3 MG/DL (1.5-2.4); POTASSIUM 3.6 MMOL/L (3.5-5.1); SODIUM 141 MMOL/L (135-145); TOTAL CARBON DIOXIDE 26.1 MMOL/L (24-32); TOTAL PROTEIN 5.6 G/DL (6.4-8.2); eGFR > 90 ML/MIN
[2017-08-05 06:25] LABS: BASOPHILS % (AUTO) 0.2 % (0-1); EOSINOPHILS # (AUTO) 0.4 X10'3 (0-0.9); EOSINOPHILS % (AUTO) 6.7 % (0-6); HEMATOCRIT 37.9 % (35.0-45.0); HEMOGLOBIN 12.6 g/dl (12.0-16.0); LYMPHOCYTES % (AUTO) 18.4 % (21-51); MEAN CORPUSCULAR HEMOGLOBIN 30.4 PG (27.0-31.0); MEAN CORPUSCULAR HGB CONC 33.4 % (33.0-36.5); MEAN CORPUSCULAR VOLUME 91.2 FL (78-98); MONOCYTES # (AUTO) 0.6 X10'3 (0-0.9); MONOCYTES % (AUTO) 11.5 % (2-12); NEUTROPHILS # (AUTO) 3.4 X10'3 (1.8-7.7); NEUTROPHILS % (AUTO) 63.2 % (42-75); PLATELET COUNT 126 X10'3 (140-440); RED BLOOD COUNT 4.16 X10'6 (4.20-5.60); RED CELL DISTRIBUTION WIDTH 15.6 % (11.5-14.5); WHITE BLOOD COUNT 5.4 X10'3 (4.5-11.0)
[2017-08-05 07:09] VITALS: BP 131/77
[2017-08-05] MEDS: K and/or MAG REPLACEMENT MC SCH (08:17)
[2017-08-05] MEDS: lactobacillus rhamnosus 10,000 MMU CELLS/CAPSULE PO SCH ×2 (08:25→21:02)
[2017-08-05] MEDS: magnesium Cl slow-release 64mg tablet PO PRN ×2 (08:25→17:50)
[2017-08-05] MEDS: heparin, porcine 5000 units/ml vial SQ SCH (08:26)
[2017-08-05] MEDS: nicotine 14mg patch - 24hr TD SCH (08:26)
[2017-08-05] MEDS: enoxaparin 100mg/ml syringe SUBCUT SCH ×2 (11:25→21:03)
[2017-08-05 11:35] VITALS: BP 110/63
[2017-08-05] MEDS: LORazepam 0.5 MG tablet PO PRN ×2 (12:23→22:36)
[2017-08-05] MEDS ORDERED: VANCOMYCIN LEVEL IV ONE (17:30)
[2017-08-05 19:30] VITALS: BP 108/72
[2017-08-05 23:00] VITALS: BP 116/73
[2017-08-06] MEDS: HYDROmorphone 1 mg/ml syringe IV PRN ×6 (00:41→22:02)
[2017-08-06 05:09] LABS: BASOPHILS % (AUTO) 0.5 % (0-1); EOSINOPHILS # (AUTO) 0.4 X10'3 (0-0.9); EOSINOPHILS % (AUTO) 6.7 % (0-6); HEMATOCRIT 38.2 % (35.0-45.0); HEMOGLOBIN 12.7 g/dl (12.0-16.0); LYMPHOCYTES # (AUTO) 1.3 X10'3 (1.1-4.8); LYMPHOCYTES % (AUTO) 25.1 % (21-51); MEAN CORPUSCULAR HEMOGLOBIN 30.4 PG (27.0-31.0); MEAN CORPUSCULAR HGB CONC 33.2 % (33.0-36.5); MEAN CORPUSCULAR VOLUME 91.4 FL (78-98); MEAN PLATELET VOLUME 9.3 FL (7.4-10.4); MONOCYTES # (AUTO) 0.8 X10'3 (0-0.9); MONOCYTES % (AUTO) 15.3 % (2-12); NEUTROPHILS # (AUTO) 2.8 X10'3 (1.8-7.7); NEUTROPHILS % (AUTO) 52.4 % (42-75); PLATELET COUNT 157 X10'3 (140-440); RED BLOOD COUNT 4.18 X10'6 (4.20-5.60); WHITE BLOOD COUNT 5.4 X10'3 (4.5-11.0)
[2017-08-06 05:36] LABS: ALANINE AMINOTRANSFERASE 26 U/L (12-78); ALBUMIN 2.1 G/DL (3.4-5.0); ALBUMIN/GLOBULIN RATIO 0.6 (1.1-1.5); ALKALINE PHOSPHATASE 65 IU/L (46-116); ANION GAP 8 (8-16); ASPARTATE AMINO TRANSFERASE 18 U/L (10-37); BILIRUBIN,TOTAL 0.2 MG/DL (0.1-1.0); BLOOD UREA NITROGEN 5 MG/DL (7-18); BUN/CREATININE RATIO 8.6 (6.6-38.0); CALCIUM 8.3 MG/DL (8.5-10.1); CHLORIDE 104 MMOL/L (99-107); CREATININE 0.58 MG/DL (0.40-0.90); GLUCOSE 100 MG/DL (70-104); MAGNESIUM 1.2 MG/DL (1.5-2.4); POTASSIUM 3.6 MMOL/L (3.5-5.1); SODIUM 142 MMOL/L (135-145); TOTAL CARBON DIOXIDE 30.2 MMOL/L (24-32); TOTAL PROTEIN 5.6 G/DL (6.4-8.2); eGFR > 90 ML/MIN
[2017-08-06 07:34] VITALS: BP 141/87
[2017-08-06] MEDS: K and/or MAG REPLACEMENT MC SCH (08:00)
[2017-08-06] MEDS: nicotine 14mg patch - 24hr TD SCH (08:11)
[2017-08-06] MEDS: lactobacillus rhamnosus 10,000 MMU CELLS/CAPSULE PO SCH ×2 (08:11→20:50)
[2017-08-06] MEDS: enoxaparin 100mg/ml syringe SUBCUT SCH ×2 (08:12→20:51)
[2017-08-06] MEDS: LORazepam 0.5 MG tablet PO PRN ×3 (09:27→19:48)
[2017-08-06] MEDS ORDERED: potassium Cl 20 mEq SR tablet PO PRN ×2 (11:50)
[2017-08-06] MEDS ORDERED: magnesium Cl slow-release 64mg tablet PO PRN (11:50)
[2017-08-06] MEDS ORDERED: magnesium 4gm in 100ml NS 100 ML IV PRN (11:50)
[2017-08-06] MEDS ORDERED: potassium Cl 40MEQ/NS 500ml 500 ML IV PRN ×2 (11:50)
[2017-08-06] MEDS ORDERED: magnesium 2GM in 50ml NS 50 ML IV PRN (11:50)
[2017-08-06 11:58] VITALS: BP 122/85
[2017-08-06] MEDS: Cefazolin 2GM/100ML NS IVPB 100 ML IV SCH ×2 (15:38→23:52)
[2017-08-06] MEDS ORDERED: Cefazolin 2GM/100ML NS IVPB 100 ML IV SCH (16:00)
[2017-08-06 19:20] VITALS: BP 142/84
[2017-08-07] VITALS: BP 119/78
[2017-08-07] MEDS: LORazepam 0.5 MG tablet PO PRN ×5 (00:30→22:11)
[2017-08-07] MEDS: HYDROmorphone 1 mg/ml syringe IV PRN ×5 (05:05→23:25)
[2017-08-07 05:37] LABS: BASOPHILS % (AUTO) 0.7 % (0-1); EOSINOPHILS # (AUTO) 0.4 X10'3 (0-0.9); EOSINOPHILS % (AUTO) 6.8 % (0-6); HEMATOCRIT 38.2 % (35.0-45.0); HEMOGLOBIN 12.7 g/dl (12.0-16.0); LYMPHOCYTES # (AUTO) 1.5 X10'3 (1.1-4.8); MEAN CORPUSCULAR HEMOGLOBIN 30.6 PG (27.0-31.0); MEAN CORPUSCULAR HGB CONC 33.3 % (33.0-36.5); MEAN CORPUSCULAR VOLUME 91.9 FL (78-98); MEAN PLATELET VOLUME 8.9 FL (7.4-10.4); MONOCYTES # (AUTO) 0.8 X10'3 (0-0.9); MONOCYTES % (AUTO) 13.8 % (2-12); NEUTROPHILS # (AUTO) 3.1 X10'3 (1.8-7.7); NEUTROPHILS % (AUTO) 52.7 % (42-75); PLATELET COUNT 215 X10'3 (140-440); RED BLOOD COUNT 4.16 X10'6 (4.20-5.60); RED CELL DISTRIBUTION WIDTH 15.6 % (11.5-14.5); WHITE BLOOD COUNT 5.8 X10'3 (4.5-11.0)
[2017-08-07 05:54] LABS: ALANINE AMINOTRANSFERASE 29 U/L (12-78); ALBUMIN 2.2 G/DL (3.4-5.0); ALBUMIN/GLOBULIN RATIO 0.6 (1.1-1.5); ALKALINE PHOSPHATASE 65 IU/L (46-116); ANION GAP 5 (8-16); ASPARTATE AMINO TRANSFERASE 16 U/L (10-37); BILIRUBIN,TOTAL 0.2 MG/DL (0.1-1.0); BLOOD UREA NITROGEN 7 MG/DL (7-18); BUN/CREATININE RATIO 11.5 (6.6-38.0); CALCIUM 8.5 MG/DL (8.5-10.1); CHLORIDE 103 MMOL/L (99-107); CREATININE 0.61 MG/DL (0.40-0.90); GLUCOSE 109 MG/DL (70-104); MAGNESIUM 1.9 MG/DL (1.5-2.4); SODIUM 140 MMOL/L (135-145); TOTAL CARBON DIOXIDE 32.2 MMOL/L (24-32); TOTAL PROTEIN 5.9 G/DL (6.4-8.2); eGFR > 90 ML/MIN
[2017-08-07] MEDS: lactobacillus rhamnosus 10,000 MMU CELLS/CAPSULE PO SCH ×2 (06:55→19:20)
[2017-08-07] MEDS: enoxaparin 100mg/ml syringe SUBCUT SCH ×2 (06:55→19:20)
[2017-08-07] MEDS: Cefazolin 2GM/100ML NS IVPB 100 ML IV SCH (06:55)
[2017-08-07] MEDS: nicotine 14mg patch - 24hr TD SCH (06:56)
[2017-08-07 07:02] VITALS: BP 134/88
[2017-08-07] MEDS: K and/or MAG REPLACEMENT MC SCH (08:00)
[2017-08-07 11:06] VITALS: BP 122/73
[2017-08-07] MEDS: ceFAZolin inj. 2,000 MG in dextrose 5%-water 100 ML IV SCH ×2 (15:36→23:29)
[2017-08-07 20:00] VITALS: BP 109/72
[2017-08-07] MEDS: acetaminophen 325mg tablet PO PRN (22:13)
[2017-08-08] VITALS: BP 118/78
[2017-08-08] MEDS: HYDROmorphone 1 mg/ml syringe IV PRN ×2 (04:27→08:46)
[2017-08-08 07:00] VITALS: BP 112/78
[2017-08-08] MEDS: lactobacillus rhamnosus 10,000 MMU CELLS/CAPSULE PO SCH ×2 (07:38→19:53)
[2017-08-08] MEDS: ceFAZolin inj. 2,000 MG in dextrose 5%-water 100 ML IV SCH ×2 (07:38→16:05)
[2017-08-08] MEDS: enoxaparin 100mg/ml syringe SUBCUT SCH ×2 (07:39→19:54)
[2017-08-08] MEDS: nicotine 14mg patch - 24hr TD SCH (07:41)
[2017-08-08] MEDS: K and/or MAG REPLACEMENT MC SCH (08:00)
[2017-08-08] MEDS: LORazepam 0.5 MG tablet PO PRN ×3 (10:35→21:51)
[2017-08-08] MEDS: HYDROcodone/acetaminophen 10/325mg tab PO PRN ×3 (10:36→19:53)
[2017-08-08 11:58] VITALS: BP 97/63
[2017-08-08] MEDS: clindamycin 600mg/D5W 50ml 50 ML IV SCH (15:29)
[2017-08-08 19:00] VITALS: BP 111/66
[2017-08-09] VITALS: BP 113/70
[2017-08-09] MEDS: HYDROcodone/acetaminophen 10/325mg tab PO PRN ×4 (00:14→13:37)
[2017-08-09] MEDS: ceFAZolin inj. 2,000 MG in dextrose 5%-water 100 ML IV SCH ×2 (01:04→09:13)
[2017-08-09] MEDS: clindamycin 600mg/D5W 50ml 50 ML IV SCH ×2 (01:04→08:27)
[2017-08-09] MEDS: LORazepam 0.5 MG tablet PO PRN ×3 (05:01→13:37)
[2017-08-09 07:19] VITALS: BP 102/63
[2017-08-09] MEDS: K and/or MAG REPLACEMENT MC SCH (08:00)
[2017-08-09] MEDS: enoxaparin 100mg/ml syringe SUBCUT SCH (08:27)
[2017-08-09] MEDS: nicotine 14mg patch - 24hr TD SCH (08:28)
[2017-08-09] MEDS: lactobacillus rhamnosus 10,000 MMU CELLS/CAPSULE PO SCH (08:28)
[2017-08-09 11:19] VITALS: BP 120/73
== END 2017-08-09 14:55 | DRG 721 ==
LOC: ER 16:16 → ED HOLD 18:03 → EDBEDREQ 19:09 → SUR 3N 20:00
PROVIDERS: ADMIT Internal Medicine; ATTEND Family Medicine
DX: T80.218A Other infection due to central venous catheter, initial encounter (principal); A41.01 Sepsis due to Methicillin susceptible Staphylococcus aureus; I82.B12 Acute embolism and thrombosis of left subclavian vein; I10 Essential (primary) hypertension; F15.10 Other stimulant abuse, uncomplicated; E86.0 Dehydration; E87.6 Hypokalemia; Y84.8 Other medical procedures as the cause of abnormal reaction of the patient, or of later complication, without mention of misadventure at the time of the procedure; G89.4 Chronic pain syndrome; M86.8X7 Other osteomyelitis, ankle and foot; L03.115 Cellulitis of right lower limb; R65.20 Severe sepsis without septic shock; Z59.0 Homelessness; Z79.01 Long term (current) use of anticoagulants; Z88.8 Allergy status to other drugs, medicaments and biological substances; Z98.51 Tubal ligation status; Y92.89 Other specified places as the place of occurrence of the external cause
CPT/HCPCS: 36415; 71045; 73610; 73630; 80053; 80202; 80305; 81001; 83605; 83735; 84132; 84145; 84484; 85025; 85610; 85730; 87040; 87070; 87077; 87186; 93306; 93971; 94640; 94760; 96365; 99285; A6257; A6410; J0690; J0696; J1170; J1644; J1650; J1885; J2001; J2543; J3370; J3475; J3480; J3490; J7030; J7060

== ENCOUNTER 2018-01-07 01:47 | Emergency (ER) | payer MEDICAID ==
[~2018-01-07] VITALS: Ht 167.6 cm; Wt 100.0 kg
[2018-01-07] MEDS ORDERED: LORazepam 2 mg/ml vial IV ONE (02:05)
[2018-01-07 02:28] LABS: BASOPHILS % (AUTO) 0.3 % (0-1); EOSINOPHILS # (AUTO) 0.1 X10'3 (0-0.9); EOSINOPHILS % (AUTO) 1.2 % (0-6); HEMATOCRIT 43.8 % (35.0-45.0); HEMOGLOBIN 14.5 g/dl (12.0-16.0); LYMPHOCYTES # (AUTO) 1.4 X10'3 (1.1-4.8); LYMPHOCYTES % (AUTO) 12.8 % (21-51); MEAN CORPUSCULAR HEMOGLOBIN 29.3 PG (27.0-31.0); MEAN CORPUSCULAR HGB CONC 33.2 % (33.0-36.5); MEAN CORPUSCULAR VOLUME 88.5 FL (78-98); MEAN PLATELET VOLUME 8.4 FL (7.4-10.4); MONOCYTES # (AUTO) 0.9 X10'3 (0-0.9); NEUTROPHILS # (AUTO) 8.4 X10'3 (1.8-7.7); NEUTROPHILS % (AUTO) 77.7 % (42-75); PLATELET COUNT 292 X10'3 (140-440); RED BLOOD COUNT 4.95 X10'6 (4.20-5.60); RED CELL DISTRIBUTION WIDTH 14.6 % (11.5-14.5); WHITE BLOOD COUNT 10.9 X10'3 (4.5-11.0)
[2018-01-07 02:47] LABS: ALANINE AMINOTRANSFERASE 27 U/L (12-78); ALBUMIN 4.2 G/DL (3.4-5.0); ALBUMIN/GLOBULIN RATIO 1.1 (1.1-1.5); ALKALINE PHOSPHATASE 72 IU/L (46-116); ANION GAP 12 (8-16); ASPARTATE AMINO TRANSFERASE 26 U/L (10-37); BILIRUBIN,TOTAL 0.4 MG/DL (0.1-1.0); BLOOD UREA NITROGEN 7 MG/DL (7-18); BUN/CREATININE RATIO 11.1 (6.6-38.0); CALCIUM 9.4 MG/DL (8.5-10.1); CHLORIDE 101 MMOL/L (99-107); CREATININE 0.63 MG/DL (0.40-0.90); GLUCOSE 103 MG/DL (70-104); POTASSIUM 3.2 MMOL/L (3.5-5.1); SODIUM 142 MMOL/L (135-145); TOTAL CARBON DIOXIDE 29.4 MMOL/L (24-32); TOTAL PROTEIN 8.1 G/DL (6.4-8.2); eGFR > 90 ML/MIN
[2018-01-07 02:57] LABS: PARTIAL THROMBOPLASTIN TIME 27 SECONDS (22-32); PROTHROMBIN TIME 10.4 SECONDS (9.0-12.0)
[2018-01-07 03:16] LABS: URINE AMPHETAMINE SCREEN POSITIVE (Neg); URINE BARBITUATE SCREEN NEGATIVE (Neg); URINE BENZODIAZEPINES SCREEN NEGATIVE (Neg); URINE CANNABINOID SCREEN POSITIVE (Neg); URINE COCAINE SCREEN NEGATIVE (Neg); URINE METHADONE SCREEN NEGATIVE (Neg); URINE OPIATE SCREEN NEGATIVE (Neg); URINE PHENCYCLIDINE SCREEN NEGATIVE (Neg)
[2018-01-07] MEDS ORDERED: potassium Cl 20 mEq SR tablet PO STA (03:27)
[2018-01-07 03:49] LABS: D-DIMER 0.21 MG/L FEU (0-0.50)
[2018-01-07] MEDS ORDERED: IBUP-1986 PO (03:53)
[2018-01-07 03:58] VITALS: BP 118/85
== END 2018-01-07 04:03 | disposition home or self-care (01) ==
LOC: ER 01:48
DX: R07.89 Other chest pain (principal); I10 Essential (primary) hypertension; G89.29 Other chronic pain; F17.200 Nicotine dependence, unspecified, uncomplicated; F15.90 Other stimulant use, unspecified, uncomplicated; Z98.890 Other specified postprocedural states; Z98.51 Tubal ligation status; Z88.5 Allergy status to narcotic agent
CPT/HCPCS: 36415; 71045; 80053; 80305; 83880; 84484; 85025; 85379; 85610; 85730; 93005; 96374; 99285; J2060

== ENCOUNTER 2018-08-02 23:39 | Emergency (ER) | payer MEDICAID ==
[~2018-08-02] VITALS: Ht 167.6 cm; Wt 65.3 kg
[~2018-08-02 23:39] MED LIST changes: +IBUP-1986 PO
[2018-08-03] MEDS ORDERED: normal saline 1000ml 1,000 ML IV ONE (02:15)
[2018-08-03] MEDS ORDERED: LORazepam 2 mg/ml vial IV ONE (02:35)
--- NOTE | 2018-08-03 02:42 | NUR ---
Pt had gotten very anxious after I placed the EJ. She said she is anxious for the IV. Apparently this year has been very rough on her. She had osteomylitis and was in [place] for 2 mo and had to have her IVs and midlines replaced frequently so she seems to have some PTSD from that. Gave the patient ativan to help calm her down. Visited with her about where she is from. She has children in [place], [place] and her parents live there.
[2018-08-03 02:57] LABS: BASOPHILS % (AUTO) 0.2 % (0-1); EOSINOPHILS # (AUTO) 0.4 X10'3 (0-0.9); HEMATOCRIT 37.6 % (35.0-45.0); HEMOGLOBIN 12.9 g/dl (12.0-16.0); LYMPHOCYTES # (AUTO) 1.4 X10'3 (1.1-4.8); LYMPHOCYTES % (AUTO) 15.4 % (21-51); MEAN CORPUSCULAR HEMOGLOBIN 30.8 PG (27.0-31.0); MEAN CORPUSCULAR HGB CONC 34.2 g/dL (33.0-36.5); MEAN CORPUSCULAR VOLUME 90.1 FL (78-98); MEAN PLATELET VOLUME 7.9 FL (7.4-10.4); MONOCYTES # (AUTO) 0.8 X10'3 (0-0.9); MONOCYTES % (AUTO) 8.5 % (2-12); NEUTROPHILS # (AUTO) 6.4 X10'3 (1.8-7.7); NEUTROPHILS % (AUTO) 71.9 % (42-75); PLATELET COUNT 416 X10'3 (140-440); RED BLOOD COUNT 4.17 X10'6 (4.20-5.60); RED CELL DISTRIBUTION WIDTH 13.8 % (11.5-14.5); WHITE BLOOD COUNT 8.9 X10'3 (4.5-11.0)
[2018-08-03 03:09] LABS: ALANINE AMINOTRANSFERASE 20 U/L (12-78); ALBUMIN 3.1 G/DL (3.4-5.0); ALBUMIN/GLOBULIN RATIO 0.9 (1.1-1.5); ALKALINE PHOSPHATASE 70 IU/L (46-116); ANION GAP 4 (8-16); ASPARTATE AMINO TRANSFERASE 18 U/L (10-37); BILIRUBIN,TOTAL 0.2 MG/DL (0.1-1.0); BLOOD UREA NITROGEN 8 MG/DL (7-18); BUN/CREATININE RATIO 13.8 (6.6-38.0); CALCIUM 9.6 MG/DL (8.5-10.1); CHLORIDE 101 MMOL/L (99-107); CREATININE 0.58 MG/DL (0.40-0.90); GLUCOSE 108 MG/DL (70-104); POTASSIUM 3.3 MMOL/L (3.5-5.1); SODIUM 137 MMOL/L (135-145); TOTAL CARBON DIOXIDE 32.5 MMOL/L (24-32); TOTAL PROTEIN 6.4 G/DL (6.4-8.2); eGFR > 90 ML/MIN
[2018-08-03] MEDS ORDERED: CLIN150C8 PO (03:34)
[2018-08-03] MEDS ORDERED: triamcinolone acetonide 40mg/ml inj IM ONE (03:35)
[2018-08-03] MEDS ORDERED: penicillin G benzathine 1.2 million unit/2ml syringe IM ONE (03:35)
[2018-08-03] MEDS ORDERED: dexamethasone 4mg/ml inj IM ONE (03:35)
[2018-08-03 03:40] LABS: CLARITY,URINE CLOUDY (Clear); COLOR,URINE YELLOW (Yellow); GLUCOSE, URINE NEGATIVE (Neg); KETONES,URINE TRACE mg/dl (Neg); LEUKOCYTE ESTERASE ,URINE TRACE (Neg); NITRITES, URINE NEGATIVE (Neg); OCCULT BLOOD,URINE NEGATIVE (Neg); PH,URINE 5.5 (4.8-8.0); PROTEIN,URINE TRACE mg/dl (Neg); UROBILINOGEN,URINE 0.2 E.U/dL (0.2-1.0)
[2018-08-03 03:46] LABS: UA COLLECTION TYPE STRAIGHT CATH
[2018-08-03 03:47] LABS: BACTERIA,URINE FEW /HPF (Neg); MUCUS STRANDS MODERATE /LPF (Neg); RBC,URINE NONE SEEN /HPF (0-2); SQUAMOUS EPITHELIAL CELL,UR FEW /LPF (FEW)
[2018-08-03 04:00] LABS: URINE AMPHETAMINE SCREEN POSITIVE (Neg); URINE BARBITUATE SCREEN NEGATIVE (Neg); URINE BENZODIAZEPINES SCREEN NEGATIVE (Neg); URINE CANNABINOID SCREEN POSITIVE (Neg); URINE COCAINE SCREEN NEGATIVE (Neg); URINE METHADONE SCREEN NEGATIVE (Neg); URINE OPIATE SCREEN NEGATIVE (Neg); URINE PHENCYCLIDINE SCREEN NEGATIVE (Neg)
[2018-08-03 05:38] VITALS: BP 101/53
--- NOTE | 2018-08-03 05:40 | NUR ---
CALLED [facility] AT 05:39 AND ETA IS 30 MINS
== END 2018-08-03 05:41 | disposition home or self-care (01) ==
LOC: ER 23:40
DX: L23.7 Allergic contact dermatitis due to plants, except food (principal); I10 Essential (primary) hypertension; G89.29 Other chronic pain; F15.90 Other stimulant use, unspecified, uncomplicated; Z88.6 Allergy status to analgesic agent; Z79.2 Long term (current) use of antibiotics; Z79.1 Long term (current) use of non-steroidal anti-inflammatories (NSAID); Z79.899 Other long term (current) drug therapy; Z98.51 Tubal ligation status; Z98.890 Other specified postprocedural states
CPT/HCPCS: 36415; 80053; 80305; 81001; 83605; 83880; 85025; 87077; 87088; 87186; 96372; 96374; 99283; J0561; J1100; J2060; J3301; J7030

== ENCOUNTER 2018-10-13 23:56 | Emergency (ER) | payer MEDICAID ==
[~2018-10-13] VITALS: Ht 167.6 cm; Wt 68.2 kg
[~2018-10-13 23:56] MED LIST changes: +CLIN150C8 PO
[2018-10-14] MEDS ORDERED: TETanus/Pertussis (Acell)/Diphther VAC/PF (Tdap-Adult) 0.5ml syringe IM ONE (00:30)
[2018-10-14] MEDS ORDERED: sulfamethoxazole/trimethoprim DS (800/160mg) tablet PO ONE (00:30)
[2018-10-14] MEDS ORDERED: SULF1TAB49 PO (00:31)
[2018-10-14 00:48] VITALS: BP 136/82
== END 2018-10-14 00:53 | disposition home or self-care (01) ==
LOC: ER 23:57
DX: S60.454A Superficial foreign body of right ring finger, initial encounter (principal); L03.011 Cellulitis of right finger; I10 Essential (primary) hypertension; G89.29 Other chronic pain; F15.90 Other stimulant use, unspecified, uncomplicated; F10.99 Alcohol use, unspecified with unspecified alcohol-induced disorder; Z98.51 Tubal ligation status; Z88.8 Allergy status to other drugs, medicaments and biological substances; Z79.899 Other long term (current) drug therapy; W49.04XA Ring or other jewelry causing external constriction, initial encounter; Y93.89 Activity, other specified; Y92.89 Other specified places as the place of occurrence of the external cause; Y99.8 Other external cause status; Y90.9 Presence of alcohol in blood, level not specified
CPT/HCPCS: 99284

== ENCOUNTER 2019-04-01 13:13 | Emergency (ER) | payer MEDICAID ==
[~2019-04-01] VITALS: Ht 172.7 cm; Wt 75.0 kg
[2019-04-01 13:31] VITALS: BP 109/81
[2019-04-01 13:56] LABS: URINE HCG NEGATIVE (NEG)
[2019-04-01 13:58] LABS: CLARITY,URINE CLOUDY (Clear); COLOR,URINE YELLOW (Yellow); GLUCOSE, URINE NEGATIVE (Neg); KETONES,URINE NEGATIVE (Neg); LEUKOCYTE ESTERASE ,URINE LARGE (Neg); NITRITES, URINE NEGATIVE (Neg); OCCULT BLOOD,URINE SMALL (Neg); PH,URINE 5.5 (4.8-8.0); PROTEIN,URINE NEGATIVE (Neg); UROBILINOGEN,URINE 0.2 E.U/dL (0.2-1.0)
[2019-04-01 14:00] LABS: UA COLLECTION TYPE CLN CATCH MIDSTREAM
[2019-04-01 14:03] LABS: MUCUS STRANDS MODERATE /LPF (Neg); SQUAMOUS EPITHELIAL CELL,UR MANY /LPF (FEW)
[2019-04-01 14:04] LABS: BACTERIA,URINE 2+ /HPF (Neg); WBC,URINE 50-100 /HPF (0-4)
[2019-04-01] MEDS ORDERED: FOSFOMYCIN TROMETHAMINE 3 GM PACKET PO ONE (14:30)
== END 2019-04-01 15:12 | disposition home or self-care (01) ==
LOC: ER 13:13
DX: N39.0 Urinary tract infection, site not specified (principal); I10 Essential (primary) hypertension; G89.29 Other chronic pain; F10.99 Alcohol use, unspecified with unspecified alcohol-induced disorder; F15.90 Other stimulant use, unspecified, uncomplicated; Z98.51 Tubal ligation status; Z86.711 Personal history of pulmonary embolism; Z88.8 Allergy status to other drugs, medicaments and biological substances; Z79.899 Other long term (current) drug therapy; Y90.9 Presence of alcohol in blood, level not specified
CPT/HCPCS: 81001; 81025; 87077; 87088; 87186; 99283

== ENCOUNTER 2019-07-01 21:16 | Emergency (ER) | payer MEDICAID ==
[~2019-07-01] VITALS: Ht 167.6 cm; Wt 61.9 kg
[2019-07-01 21:19] VITALS: BP 110/68
--- NOTE | 2019-07-01 21:22 | NUR ---
IVONNE ASSESSING PATIENT IN TRIAGE
[2019-07-01] MEDS ORDERED: CEPH250T PO (21:31)
== END 2019-07-01 21:45 | disposition home or self-care (01) ==
LOC: ER 21:17
DX: L03.116 Cellulitis of left lower limb (principal); I10 Essential (primary) hypertension; G89.29 Other chronic pain; F12.90 Cannabis use, unspecified, uncomplicated; F17.200 Nicotine dependence, unspecified, uncomplicated; Z98.890 Other specified postprocedural states; Z98.51 Tubal ligation status; Z59.0 Homelessness; Z86.711 Personal history of pulmonary embolism; Z88.5 Allergy status to narcotic agent
CPT/HCPCS: 99283

== ENCOUNTER 2020-01-14 18:05 | Emergency (ER) | payer MEDICAID ==
[~2020-01-14] VITALS: Ht 167.6 cm; Wt 71.5 kg
[2020-01-14 18:12] VITALS: BP 127/79
[2020-01-14] MEDS ORDERED: SULF1TAB49 PO (18:48)
[2020-01-14] MEDS ORDERED: NAPR-56 PO (18:48)
[2020-01-14] MEDS ORDERED: MUPI22OI30 TOP (18:48)
== END 2020-01-14 19:16 | disposition home or self-care (01) ==
LOC: ER 18:05
DX: L03.116 Cellulitis of left lower limb (principal); I10 Essential (primary) hypertension; G89.29 Other chronic pain; F12.90 Cannabis use, unspecified, uncomplicated; Z86.711 Personal history of pulmonary embolism; Z98.51 Tubal ligation status; Z98.890 Other specified postprocedural states; Z72.89 Other problems related to lifestyle; Z59.0 Homelessness; Z88.8 Allergy status to other drugs, medicaments and biological substances; Z79.2 Long term (current) use of antibiotics; Z79.899 Other long term (current) drug therapy
CPT/HCPCS: 99283

== ENCOUNTER 2020-02-11 16:47 | Inpatient (IN) | payer MEDICAID ==
[~2020-02-11] VITALS: Ht 167.6 cm; Wt 68.2 kg
[~2020-02-11 16:47] MED LIST changes: +NAPR-56 PO
[2020-02-11] MEDS ORDERED: cephalexin 500mg capsule PO ONE (18:15)
--- NOTE | 2020-02-11 19:00 | NUR ---
PT REPORTS SHE HAS BAD ECZEMA AND POISON OAK ON HER ARMS, THIGHS, LEGS. PT SKIN IS RED, SEVERAL SCRATCHES ON HER BODY FROM ITCHING. PT IS HOMELESS AND REPORT WALKING IN THE BUSHES. SHE GETS POISON OAK ALL THE TIME.
[2020-02-11 19:27] LABS: ALANINE AMINOTRANSFERASE 21 U/L (12-78); ALBUMIN 4.1 G/DL (3.4-5.0); ALKALINE PHOSPHATASE 86 IU/L (46-116); ANION GAP 8 (8-16); ASPARTATE AMINO TRANSFERASE 23 U/L (10-37); BILIRUBIN,TOTAL 0.3 MG/DL (0.1-1.0); BLOOD UREA NITROGEN 10 MG/DL (7-18); BUN/CREATININE RATIO 15.2 (6.6-38.0); CALCIUM 9.3 MG/DL (8.5-10.1); CHLORIDE 101 MMOL/L (99-107); CREATININE 0.66 MG/DL (0.40-0.90); GLUCOSE 100 MG/DL (70-104); POTASSIUM 3.5 MMOL/L (3.5-5.1); SODIUM 139 MMOL/L (135-145); TOTAL CARBON DIOXIDE 30.4 MMOL/L (24-32); TOTAL PROTEIN 8.1 G/DL (6.4-8.2); eGFR > 90 ML/MIN
[2020-02-11] MEDS ORDERED: vancomycin 1,750 MG in NS 350ml IV soln IV ONE (19:30)
[2020-02-11] MEDS ORDERED: morphine 4 MG/ML inj SYRINge IV ONE (20:45)
[2020-02-11 20:51] LABS: BASOPHILS # (AUTO) 0.1 X10'3 (0-0.2); BASOPHILS % (AUTO) 0.5 % (0-1); EOSINOPHILS # (AUTO) 1.8 X10'3 (0-0.9); EOSINOPHILS % (AUTO) 16.5 % (0-6); HEMATOCRIT 39.6 % (35.0-45.0); HEMOGLOBIN 13.5 g/dl (12.0-16.0); LYMPHOCYTES # (AUTO) 2.1 X10'3 (1.1-4.8); LYMPHOCYTES % (AUTO) 19.6 % (21-51); MEAN CORPUSCULAR VOLUME 88.3 FL (78-98); MEAN PLATELET VOLUME 8.2 FL (7.4-10.4); MONOCYTES # (AUTO) 0.9 X10'3 (0-0.9); MONOCYTES % (AUTO) 8.2 % (2-12); NEUTROPHILS % (AUTO) 55.2 % (42-75); PLATELET COUNT 314 X10'3 (140-440); RED BLOOD COUNT 4.49 X10'6 (4.20-5.60); RED CELL DISTRIBUTION WIDTH 13.6 % (11.5-14.5); WHITE BLOOD COUNT 10.8 X10'3 (4.5-11.0)
[2020-02-11] MEDS ORDERED: diphenhydrAMINE 50 mg/ml inj IV ONE (22:10)
--- NOTE | 2020-02-11 22:12 | NUR ---
PER DR. STERLING UPON ASSESSMENT OF PT TO STOP THE VANCO AND GIVE BENADRYL AND HE WILL ORDER ANOTHER ABX. PT HAS REDDNES AND SWELLING ON BOTH ARMS, PER PRIMARY RN THIS IS HOW PT PRESENTED IN ED TODAY AND ISNT A NEW SYMPTOM.
[2020-02-11] MEDS ORDERED: potassium Cl 20 mEq SR tablet PO PRN (22:30)
[2020-02-11] MEDS ORDERED: magnesium hydroxide 30ml (MOM) UD suspension PO PRN (22:30)
[2020-02-11] MEDS ORDERED: potassium Cl 40MEQ/1/2NS 520ml 520 ML IV PRN ×2 (22:30)
[2020-02-11] MEDS ORDERED: mag hydrox/Alum hydrox/simeth 30ml oral suspension PO PRN (22:30)
[2020-02-11] MEDS ORDERED: acetaminophen 325mg tablet PO PRN (22:30)
[2020-02-11] MEDS ORDERED: ondansetron/PF 4mg/2ml inj IV PRN (22:30)
[2020-02-11] MEDS: normal saline 1000ml 1,000 ML IV SCH (23:16)
[2020-02-11] MEDS: clindamycin 300mg/D5W 50mL 50 ML IV SCH (23:25)
[2020-02-12] MEDS: HYDROcodone/acetaminophen 5mg/325mg tablet PO PRN ×3 (02:08→19:54)
--- NOTE | 2020-02-12 02:09 | NUR ---
pt hungry and in pain. Got her food and a norco.
[2020-02-12 02:58] LABS: BASOPHILS % (AUTO) 0.4 % (0-1); EOSINOPHILS # (AUTO) 1.2 X10'3 (0-0.9); EOSINOPHILS % (AUTO) 13.4 % (0-6); HEMATOCRIT 36.4 % (35.0-45.0); HEMOGLOBIN 12.3 g/dl (12.0-16.0); LYMPHOCYTES # (AUTO) 1.7 X10'3 (1.1-4.8); LYMPHOCYTES % (AUTO) 18.3 % (21-51); MEAN CORPUSCULAR HEMOGLOBIN 29.7 PG (27.0-31.0); MEAN CORPUSCULAR HGB CONC 33.7 g/dL (33.0-36.5); MEAN CORPUSCULAR VOLUME 87.9 FL (78-98); MEAN PLATELET VOLUME 8.4 FL (7.4-10.4); MONOCYTES # (AUTO) 0.8 X10'3 (0-0.9); NEUTROPHILS # (AUTO) 5.4 X10'3 (1.8-7.7); NEUTROPHILS % (AUTO) 58.9 % (42-75); PLATELET COUNT 254 X10'3 (140-440); RED BLOOD COUNT 4.14 X10'6 (4.20-5.60); RED CELL DISTRIBUTION WIDTH 13.3 % (11.5-14.5); WHITE BLOOD COUNT 9.2 X10'3 (4.5-11.0)
[2020-02-12 03:12] LABS: ALANINE AMINOTRANSFERASE 18 U/L (12-78); ALBUMIN/GLOBULIN RATIO 0.9 (1.1-1.5); ALKALINE PHOSPHATASE 65 IU/L (46-116); ANION GAP 5 (8-16); ASPARTATE AMINO TRANSFERASE 17 U/L (10-37); BILIRUBIN,TOTAL 0.4 MG/DL (0.1-1.0); BLOOD UREA NITROGEN 11 MG/DL (7-18); BUN/CREATININE RATIO 16.7 (6.6-38.0); CALCIUM 8.3 MG/DL (8.5-10.1); CHLORIDE 104 MMOL/L (99-107); CREATININE 0.66 MG/DL (0.40-0.90); GLUCOSE 127 MG/DL (70-104); POTASSIUM 3.3 MMOL/L (3.5-5.1); SODIUM 139 MMOL/L (135-145); TOTAL CARBON DIOXIDE 29.6 MMOL/L (24-32); TOTAL PROTEIN 6.2 G/DL (6.4-8.2); eGFR > 90 ML/MIN
--- NOTE | 2020-02-12 06:06 | NUR ---
rECEIVED PT FROM ER, ORIENTED TO ROOM AND ROUTINE. ELVIN MEEKS WILL BE PT NURSE, AND HE HAS RECEIVED REPORT FROM MONO RN. Addendum: 02/12/20 at 0606 by Fernando Pedersen RN Amended: Links added.
[2020-02-12] MEDS: clindamycin 300mg/D5W 50mL 50 ML IV SCH ×3 (06:21→17:00)
[2020-02-12 06:25] VITALS: BP 100/67
[2020-02-12] MEDS: K and/or MAG REPLACEMENT MC SCH ×2 (08:00→19:16)
[2020-02-12] MEDS: normal saline 1000ml 1,000 ML IV SCH ×2 (08:37→19:55)
[2020-02-12] MEDS: CefTRIAXone/D5W-Rocephin 1gm 50 ML IV SCH (08:38)
[2020-02-12] MEDS: heparin, porcine 5000 units/ml vial SQ SCH ×2 (08:38→19:54)
[2020-02-12] MEDS: potassium Cl 20 mEq SR tablet PO PRN ×2 (08:39→19:53)
[2020-02-12 11:00] VITALS: BP 97/67
--- NOTE | 2020-02-12 12:33 | NUR ---
Patient in room [facility]. I have received report from ELVIN Greer and had the opportunity to ask questions and assume patient care.
[2020-02-12] MEDS: morphine 2 MG/ML inj. syringe IV PRN ×2 (13:59→22:09)
[2020-02-12 16:43] LABS: URINE HCG NEGATIVE (NEG)
[2020-02-12 16:58] LABS: URINE AMPHETAMINE SCREEN POSITIVE (Neg); URINE BARBITUATE SCREEN NEGATIVE (Neg); URINE BENZODIAZEPINES SCREEN NEGATIVE (Neg); URINE CANNABINOID SCREEN POSITIVE (Neg); URINE COCAINE SCREEN NEGATIVE (Neg); URINE METHADONE SCREEN NEGATIVE (Neg); URINE OPIATE SCREEN POSITIVE (Neg); URINE PHENCYCLIDINE SCREEN NEGATIVE (Neg)
[2020-02-12 18:00] VITALS: BP 105/62
[2020-02-12] MEDS ORDERED: FLU VACC QS2020-21(6MOS UP)/PF 60 MCG/0.5 ML SYRINGE IMVAC ONE (18:00)
--- NOTE | 2020-02-12 18:15 | NUR ---
Patient in room [facility]. I have received report from MANNIE RN and had the opportunity to ask questions and assume patient care.
--- NOTE | 2020-02-12 18:24 | NUR ---
Problems reprioritized. Patient report given, questions answered & plan of care reviewed with ELVIN Graves.
[2020-02-12] MEDS: lactobacillus rhamnosus 10,000 MMU CELLS/CAPSULE PO SCH (19:54)
[2020-02-13] VITALS: BP 99/51
[2020-02-13] MEDS: clindamycin 300mg/D5W 50mL 50 ML IV SCH ×4 (00:17→20:09)
[2020-02-13] MEDS: potassium Cl 20 mEq SR tablet PO PRN (00:18)
[2020-02-13] MEDS: normal saline 1000ml 1,000 ML IV SCH (04:30)
[2020-02-13] MEDS: morphine 2 MG/ML inj. syringe IV PRN ×2 (05:06→20:12)
[2020-02-13 05:52] LABS: BASOPHILS % (AUTO) 0.3 % (0-1); EOSINOPHILS % (AUTO) 10.7 % (0-6); HEMATOCRIT 35.3 % (35.0-45.0); HEMOGLOBIN 11.8 g/dl (12.0-16.0); LYMPHOCYTES # (AUTO) 1.7 X10'3 (1.1-4.8); LYMPHOCYTES % (AUTO) 18.1 % (21-51); MEAN CORPUSCULAR HEMOGLOBIN 29.7 PG (27.0-31.0); MEAN CORPUSCULAR HGB CONC 33.4 g/dL (33.0-36.5); MEAN CORPUSCULAR VOLUME 89.1 FL (78-98); MEAN PLATELET VOLUME 8.5 FL (7.4-10.4); MONOCYTES # (AUTO) 0.8 X10'3 (0-0.9); MONOCYTES % (AUTO) 9.1 % (2-12); NEUTROPHILS # (AUTO) 5.8 X10'3 (1.8-7.7); NEUTROPHILS % (AUTO) 61.8 % (42-75); PLATELET COUNT 242 X10'3 (140-440); RED BLOOD COUNT 3.96 X10'6 (4.20-5.60); RED CELL DISTRIBUTION WIDTH 14.2 % (11.5-14.5); WHITE BLOOD COUNT 9.4 X10'3 (4.5-11.0)
[2020-02-13 05:59] LABS: ALANINE AMINOTRANSFERASE 18 U/L (12-78); ALBUMIN 2.7 G/DL (3.4-5.0); ALBUMIN/GLOBULIN RATIO 0.8 (1.1-1.5); ALKALINE PHOSPHATASE 57 IU/L (46-116); ANION GAP 5 (8-16); ASPARTATE AMINO TRANSFERASE 11 U/L (10-37); BILIRUBIN,TOTAL 0.2 MG/DL (0.1-1.0); BLOOD UREA NITROGEN 8 MG/DL (7-18); BUN/CREATININE RATIO 13.6 (6.6-38.0); CALCIUM 8.3 MG/DL (8.5-10.1); CHLORIDE 106 MMOL/L (99-107); CREATININE 0.59 MG/DL (0.40-0.90); GLUCOSE 89 MG/DL (70-104); POTASSIUM 4.1 MMOL/L (3.5-5.1); SODIUM 141 MMOL/L (135-145); TOTAL CARBON DIOXIDE 29.7 MMOL/L (24-32); TOTAL PROTEIN 5.9 G/DL (6.4-8.2); eGFR > 90 ML/MIN
--- NOTE | 2020-02-13 06:13 | NUR ---
Problems reprioritized. Patient report given, questions answered & plan of care reviewed with JERONIMO OCONNOR.
--- NOTE | 2020-02-13 06:51 | NUR ---
Patient in room [facility]. I have received report from ELVIN Graves and had the opportunity to ask questions and assume patient care.
[2020-02-13 08:00] VITALS: BP 111/70
[2020-02-13] MEDS: K and/or MAG REPLACEMENT MC SCH ×2 (08:00→20:00)
[2020-02-13] MEDS: lactobacillus rhamnosus 10,000 MMU CELLS/CAPSULE PO SCH ×2 (08:15→20:10)
[2020-02-13] MEDS: CefTRIAXone/D5W-Rocephin 1gm 50 ML IV SCH (08:15)
[2020-02-13] MEDS: heparin, porcine 5000 units/ml vial SQ SCH ×2 (08:16→20:10)
[2020-02-13] MEDS: HYDROcodone/acetaminophen 5mg/325mg tablet PO PRN (08:29)
[2020-02-13] MEDS ORDERED: HYDROcodone/acetaminophen 10/325mg tab PO PRN (10:05)
[2020-02-13 11:00] VITALS: BP 88/57
[2020-02-13] MEDS: HYDROcodone/acetaminophen 10/325mg tab PO PRN (14:40)
[2020-02-13 18:00] VITALS: BP 100/65
--- NOTE | 2020-02-13 18:41 | NUR ---
Problems reprioritized. Patient report given, questions answered & plan of care reviewed with ELVIN Graves.
--- NOTE | 2020-02-13 18:52 | NUR ---
Patient in room [facility]. I have received report from JERONIMO OCONNOR and had the opportunity to ask questions and assume patient care.
[2020-02-14 00:21] VITALS: BP 101/58
[2020-02-14] MEDS: clindamycin 300mg/D5W 50mL 50 ML IV SCH ×4 (00:37→17:44)
[2020-02-14] MEDS: HYDROcodone/acetaminophen 10/325mg tab PO PRN ×4 (00:39→20:49)
[2020-02-14 06:20] LABS: BASOPHILS # (AUTO) 0.1 X10'3 (0-0.2); BASOPHILS % (AUTO) 0.9 % (0-1); EOSINOPHILS # (AUTO) 0.9 X10'3 (0-0.9); HEMATOCRIT 35.4 % (35.0-45.0); HEMOGLOBIN 11.7 g/dl (12.0-16.0); LYMPHOCYTES # (AUTO) 1.7 X10'3 (1.1-4.8); LYMPHOCYTES % (AUTO) 25.4 % (21-51); MEAN CORPUSCULAR HEMOGLOBIN 29.7 PG (27.0-31.0); MEAN CORPUSCULAR VOLUME 89.8 FL (78-98); MONOCYTES # (AUTO) 0.6 X10'3 (0-0.9); MONOCYTES % (AUTO) 9.2 % (2-12); NEUTROPHILS # (AUTO) 3.5 X10'3 (1.8-7.7); NEUTROPHILS % (AUTO) 51.5 % (42-75); PLATELET COUNT 244 X10'3 (140-440); RED BLOOD COUNT 3.94 X10'6 (4.20-5.60); RED CELL DISTRIBUTION WIDTH 13.6 % (11.5-14.5); WHITE BLOOD COUNT 6.8 X10'3 (4.5-11.0)
[2020-02-14 06:30] VITALS: BP 93/51
--- NOTE | 2020-02-14 06:32 | NUR ---
Problems reprioritized. Patient report given, questions answered & plan of care reviewed with DANTE RN.
--- NOTE | 2020-02-14 06:35 | NUR ---
Patient in room [facility]. I have received report from ELVIN Graves and had the opportunity to ask questions and assume patient care.
[2020-02-14 07:17] LABS: ALANINE AMINOTRANSFERASE 19 U/L (12-78); ALBUMIN 2.5 G/DL (3.4-5.0); ALBUMIN/GLOBULIN RATIO 0.7 (1.1-1.5); ALKALINE PHOSPHATASE 55 IU/L (46-116); ANION GAP 6 (8-16); ASPARTATE AMINO TRANSFERASE 15 U/L (10-37); BILIRUBIN,TOTAL 0.1 MG/DL (0.1-1.0); BLOOD UREA NITROGEN 12 MG/DL (7-18); BUN/CREATININE RATIO 19.7 (6.6-38.0); CALCIUM 8.7 MG/DL (8.5-10.1); CHLORIDE 105 MMOL/L (99-107); CREATININE 0.61 MG/DL (0.40-0.90); GLUCOSE 115 MG/DL (70-104); SODIUM 141 MMOL/L (135-145); TOTAL CARBON DIOXIDE 29.6 MMOL/L (24-32); TOTAL PROTEIN 5.9 G/DL (6.4-8.2); eGFR > 90 ML/MIN
[2020-02-14] MEDS: K and/or MAG REPLACEMENT MC SCH ×2 (07:20→20:00)
[2020-02-14] MEDS: lactobacillus rhamnosus 10,000 MMU CELLS/CAPSULE PO SCH ×2 (10:29→20:47)
[2020-02-14] MEDS: CefTRIAXone/D5W-Rocephin 1gm 50 ML IV SCH (10:29)
[2020-02-14] MEDS: heparin, porcine 5000 units/ml vial SQ SCH ×2 (10:30→20:48)
[2020-02-14 12:00] VITALS: BP 90/56
[2020-02-14] MEDS ORDERED: HYDR-4383 PO (12:11)
[2020-02-14] MEDS ORDERED: AMOX-580 PO (12:11)
[2020-02-14] MEDS: morphine 2 MG/ML inj. syringe IV PRN (13:46)
--- NOTE | 2020-02-14 18:40 | NUR ---
Problems reprioritized. Patient report given, questions answered & plan of care reviewed with ELVIN Gunter.
--- NOTE | 2020-02-14 18:57 | NUR ---
I have received report from Jessica OCONNOR and had the opportunity to ask questions and assume patient care.
[2020-02-14 20:00] VITALS: BP 120/80
[2020-02-15] VITALS: BP 94/36
[2020-02-15] MEDS: clindamycin 300mg/D5W 50mL 50 ML IV SCH ×3 (00:23→12:17)
[2020-02-15] MEDS: HYDROcodone/acetaminophen 10/325mg tab PO PRN ×2 (05:13→11:20)
[2020-02-15 06:37] LABS: BASOPHILS % (AUTO) 0.7 % (0-1); EOSINOPHILS % (AUTO) 17.3 % (0-6); HEMATOCRIT 37.6 % (35.0-45.0); HEMOGLOBIN 12.6 g/dl (12.0-16.0); LYMPHOCYTES # (AUTO) 2.1 X10'3 (1.1-4.8); LYMPHOCYTES % (AUTO) 36.6 % (21-51); MEAN CORPUSCULAR HEMOGLOBIN 29.9 PG (27.0-31.0); MEAN CORPUSCULAR HGB CONC 33.5 g/dL (33.0-36.5); MEAN CORPUSCULAR VOLUME 89.3 FL (78-98); MEAN PLATELET VOLUME 8.5 FL (7.4-10.4); MONOCYTES # (AUTO) 0.6 X10'3 (0-0.9); MONOCYTES % (AUTO) 10.3 % (2-12); NEUTROPHILS % (AUTO) 35.1 % (42-75); PLATELET COUNT 266 X10'3 (140-440); RED BLOOD COUNT 4.21 X10'6 (4.20-5.60); RED CELL DISTRIBUTION WIDTH 13.9 % (11.5-14.5); WHITE BLOOD COUNT 5.7 X10'3 (4.5-11.0)
--- NOTE | 2020-02-15 06:47 | NUR ---
Problems reprioritized. Patient report given, questions answered & plan of care reviewed with Coretta OCONNOR
[2020-02-15 06:55] LABS: ALANINE AMINOTRANSFERASE 21 U/L (12-78); ALBUMIN 2.6 G/DL (3.4-5.0); ALBUMIN/GLOBULIN RATIO 0.7 (1.1-1.5); ALKALINE PHOSPHATASE 58 IU/L (46-116); ANION GAP 7 (8-16); ASPARTATE AMINO TRANSFERASE 16 U/L (10-37); BILIRUBIN,TOTAL 0.1 MG/DL (0.1-1.0); BLOOD UREA NITROGEN 14 MG/DL (7-18); BUN/CREATININE RATIO 24.1 (6.6-38.0); CALCIUM 8.8 MG/DL (8.5-10.1); CHLORIDE 105 MMOL/L (99-107); CREATININE 0.58 MG/DL (0.40-0.90); GLUCOSE 96 MG/DL (70-104); POTASSIUM 4.5 MMOL/L (3.5-5.1); SODIUM 142 MMOL/L (135-145); TOTAL CARBON DIOXIDE 30.1 MMOL/L (24-32); TOTAL PROTEIN 6.2 G/DL (6.4-8.2); eGFR > 90 ML/MIN
--- NOTE | 2020-02-15 07:15 | NUR ---
Patient in room [facility]. I have received report from Lyric Ayers RN and had the opportunity to ask questions and assume patient care.
[2020-02-15 08:00] VITALS: BP 91/55
[2020-02-15] MEDS: K and/or MAG REPLACEMENT MC SCH (08:00)
[2020-02-15] MEDS: CefTRIAXone/D5W-Rocephin 1gm 50 ML IV SCH (08:39)
[2020-02-15] MEDS: lactobacillus rhamnosus 10,000 MMU CELLS/CAPSULE PO SCH (11:17)
[2020-02-15] MEDS: heparin, porcine 5000 units/ml vial SQ SCH (11:19)
[2020-02-15 12:53] VITALS: BP 104/72
--- NOTE | 2020-02-15 15:15 | NUR ---
Called in Augmentin order to Margaret, Pharmacist, at [facility], stating incorrectly that Dr Mitchell Carson was prescriber. I then promptly phoned Margaret again to clarify that Dr. Juan Manuel Vasquez was the prescribing MD, not Dr. Carson.
== END 2020-02-15 15:03 | disposition home or self-care (01) | DRG 383 ==
LOC: ER 16:48 → ED HOLD 22:29 → SUR 3N 02-12 05:58
PROVIDERS: ADMIT Internal Medicine; ATTEND Family Medicine
DX: L03.116 Cellulitis of left lower limb (principal); Z20.828 Contact with and (suspected) exposure to other viral communicable diseases; F15.10 Other stimulant abuse, uncomplicated; Z59.0 Homelessness; Z86.711 Personal history of pulmonary embolism; I10 Essential (primary) hypertension; F12.90 Cannabis use, unspecified, uncomplicated; G89.29 Other chronic pain; Z23 Encounter for immunization
CPT/HCPCS: 36415; 80053; 80305; 81025; 83605; 84145; 85025; 87040; 87081; 87635; 96365; 97161; 97530; 97535; 99285; C9803; G0378; J0696; J1200; J1644; J2270; J3370; J3490; J7030; J7040; Q2039

== ENCOUNTER 2020-08-25 21:20 | Emergency (ER) | payer MEDICAID ==
[~2020-08-25] VITALS: Ht 167.6 cm; Wt 72.0 kg
[~2020-08-25 21:20] MED LIST changes: -CLIN150C8 PO; +HYDR-4383 PO; -NAPR-56 PO
[2020-08-26 00:42] LABS: URINE HCG NEGATIVE (NEG)
[2020-08-26 00:45] LABS: CLARITY,URINE CLOUDY (Clear); COLOR,URINE YELLOW (Yellow); GLUCOSE, URINE NEGATIVE (Neg); KETONES,URINE NEGATIVE (Neg); LEUKOCYTE ESTERASE ,URINE NEGATIVE (Neg); NITRITES, URINE POSITIVE (Neg); OCCULT BLOOD,URINE NEGATIVE (Neg); PH,URINE 5.5 (4.8-8.0); PROTEIN,URINE NEGATIVE (Neg); UROBILINOGEN,URINE 0.2 E.U/dL (0.2-1.0)
[2020-08-26 00:50] LABS: UA COLLECTION TYPE CLN CATCH MIDSTREAM
[2020-08-26 00:57] LABS: AMORPHOUS URATES 3+; BACTERIA,URINE 2+ /HPF (Neg); RBC,URINE NONE SEEN /HPF (0-2); SQUAMOUS EPITHELIAL CELL,UR FEW /LPF (FEW)
[2020-08-26] MEDS ORDERED: CEPH-585 PO (04:04)
[2020-08-26] MEDS ORDERED: cephalexin 250mg capsule PO ONE (04:05)
[2020-08-26 04:09] VITALS: BP 120/73
== END 2020-08-26 04:17 | disposition home or self-care (01) ==
LOC: ER 21:21
DX: Z02.89 Encounter for other administrative examinations (principal); N39.0 Urinary tract infection, site not specified; M79.605 Pain in left leg; M79.604 Pain in right leg; R53.83 Other fatigue; R10.84 Generalized abdominal pain; I10 Essential (primary) hypertension; G89.29 Other chronic pain; F12.90 Cannabis use, unspecified, uncomplicated; Z86.711 Personal history of pulmonary embolism; Z98.51 Tubal ligation status; Z98.890 Other specified postprocedural states; Z72.89 Other problems related to lifestyle; Z59.0 Homelessness; Z88.8 Allergy status to other drugs, medicaments and biological substances; Z79.2 Long term (current) use of antibiotics; Z79.899 Other long term (current) drug therapy
CPT/HCPCS: 81001; 81025; 87077; 87088; 87186; 99283

== ENCOUNTER 2021-03-26 21:26 | Emergency (ER) | payer MEDICAID ==
[~2021-03-26] VITALS: Ht 167.6 cm; Wt 70.5 kg
[~2021-03-26 21:26] MED LIST changes: +CEPH-585 PO
[2021-03-26] MEDS ORDERED: cephalexin 500mg capsule PO ONE (22:05)
[2021-03-26] MEDS ORDERED: CEPH-585 PO (22:07)
[2021-03-26 22:58] VITALS: BP 120/87
== END 2021-03-26 23:07 | disposition home or self-care (01) ==
LOC: ER 21:27
DX: S81.001A Unspecified open wound, right knee, initial encounter (principal); L08.9 Local infection of the skin and subcutaneous tissue, unspecified; I10 Essential (primary) hypertension; G89.29 Other chronic pain; F17.200 Nicotine dependence, unspecified, uncomplicated; F12.90 Cannabis use, unspecified, uncomplicated; Z87.81 Personal history of (healed) traumatic fracture; Z86.711 Personal history of pulmonary embolism; Z72.89 Other problems related to lifestyle; Z59.00 Homelessness unspecified; Z79.2 Long term (current) use of antibiotics; Z79.899 Other long term (current) drug therapy; Z98.51 Tubal ligation status; Z88.1 Allergy status to other antibiotic agents; Z88.8 Allergy status to other drugs, medicaments and biological substances; X58.XXXA Exposure to other specified factors, initial encounter; Y93.89 Activity, other specified; Y92.89 Other specified places as the place of occurrence of the external cause; Y99.8 Other external cause status
CPT/HCPCS: 99283

== ENCOUNTER 2022-03-20 19:49 | Inpatient (IN) | payer MEDICAID ==
[~2022-03-20] VITALS: Ht 167.6 cm; Wt 63.1 kg
[2022-03-20] MEDS ORDERED: HYDROcodone/acetaminophen 10/325mg tab PO ONE (21:45)
[2022-03-20 22:09] LABS: BASOPHILS # (AUTO) 0.1 X10'3 (0-0.2); BASOPHILS % (AUTO) 0.7 % (0-1); EOSINOPHILS # (AUTO) 0.3 X10'3 (0-0.9); EOSINOPHILS % (AUTO) 3.1 % (0-6); HEMATOCRIT 35.5 % (35.0-45.0); LYMPHOCYTES # (AUTO) 1.8 X10'3 (1.1-4.8); LYMPHOCYTES % (AUTO) 18.6 % (21-51); MEAN CORPUSCULAR HEMOGLOBIN 29.6 PG (27.0-31.0); MEAN CORPUSCULAR HGB CONC 33.7 g/dL (33.0-36.5); MEAN PLATELET VOLUME 8.4 FL (7.4-10.4); MONOCYTES # (AUTO) 0.9 X10'3 (0-0.9); MONOCYTES % (AUTO) 8.6 % (2-12); NEUTROPHILS # (AUTO) 6.8 X10'3 (1.8-7.7); PLATELET COUNT 302 X10'3 (140-440); RED BLOOD COUNT 4.03 X10'6 (4.20-5.60); RED CELL DISTRIBUTION WIDTH 14.1 % (11.5-14.5); WHITE BLOOD COUNT 9.9 X10'3 (4.5-11.0)
[2022-03-20 22:16] LABS: ALANINE AMINOTRANSFERASE 33 U/L (12-78); ALBUMIN 3.7 G/DL (3.4-5.0); ALKALINE PHOSPHATASE 70 IU/L (46-116); ANION GAP 7 (8-16); ASPARTATE AMINO TRANSFERASE 31 U/L (10-37); BILIRUBIN,TOTAL 0.3 MG/DL (0.1-1.0); BLOOD UREA NITROGEN 9 MG/DL (7-18); CHLORIDE 101 MMOL/L (99-107); CREATININE 0.53 MG/DL (0.40-0.90); GLUCOSE 105 MG/DL (70-104); SODIUM 137 MMOL/L (135-145); TOTAL CARBON DIOXIDE 29.1 MMOL/L (24-32); TOTAL PROTEIN 7.3 G/DL (6.4-8.2); eGFR > 90 ML/MIN
[2022-03-20] MEDS ORDERED: ceFAZolin 1GM/D5W- ADD-VANTAGE 50 ML IV ONE (22:55)
[2022-03-20] MEDS ORDERED: gabapentin 300mg capsule PO ONE (23:35)
[2022-03-20] MEDS ORDERED: NO HOME MEDS (23:55)
[2022-03-21] MEDS ORDERED: mag hydrox/Alum hydrox/simeth 30ml oral suspension PO PRN (01:35)
[2022-03-21] MEDS ORDERED: PERFLUTREN PROTEIN-A MICROSPHR (Optison) 0.22 MG/ML 3ML VIAL IV PRN (01:35)
[2022-03-21] MEDS ORDERED: magnesium Cl slow-release 64mg tablet PO PRN (01:35)
[2022-03-21] MEDS ORDERED: potassium Cl 20 mEq SR tablet PO PRN (01:35)
[2022-03-21] MEDS ORDERED: potassium Cl 40MEQ/1/2NS 520ml 520 ML IV PRN (01:35)
[2022-03-21] MEDS ORDERED: magnesium hydroxide 30ml (MOM) UD suspension PO PRN (01:35)
[2022-03-21] MEDS ORDERED: magnesium 4gm in 100ml NS 100 ML IV PRN (01:35)
[2022-03-21] MEDS ORDERED: ondansetron/PF 4mg/2ml inj IV PRN (01:35)
[2022-03-21] MEDS ORDERED: acetaminophen 325mg tablet PO PRN (01:35)
[2022-03-21] MEDS: normal saline 1000ml 1,000 ML IV SCH (02:41)
[2022-03-21 03:20] LABS: MAGNESIUM 1.9 MG/DL (1.5-2.4); POTASSIUM 3.4 MMOL/L (3.5-5.1)
--- NOTE | 2022-03-21 06:36 | NUR ---
RECEIVED REPORT FROM ELVIN BERNARDO. PT CURRENTLY RESTING IN BED SOUNDLY
[2022-03-21] MEDS: K and/or MAG REPLACEMENT MC SCH ×2 (08:00→20:00)
[2022-03-21] MEDS: potassium Cl 20 mEq SR tablet PO PRN ×3 (08:17→18:06)
[2022-03-21] MEDS: heparin, porcine 5000 units/ml vial SQ SCH ×2 (08:17→20:28)
[2022-03-21] MEDS: docusate sod 100mg capsule PO SCH ×2 (08:18→20:00)
[2022-03-21] MEDS: HYDROcodone/acetaminophen 5mg/325mg tablet PO PRN ×4 (08:25→20:28)
[2022-03-21] MEDS: ceFAZolin/D5W- 1GM premix 50 ML IV SCH ×2 (09:02→16:04)
--- NOTE | 2022-03-21 09:43 | NUR ---
PT RECEIVED PP ([facility]) AT 0825. PT CONTINUES TO SCREAM IN HER ROOM IN PAIN. DR. STEPHENS INTO SEE PT. NEW ORDER FOR IV DILAUDID OBTAINED.
--- NOTE | 2022-03-21 09:57 | NUR ---
RECEIVED REPORT FROM ED CARPET CLEANER
[2022-03-21] MEDS: HYDROmorphone inj. 0.5 MG/0.5 ML DISP.SYRIN IV PRN ×4 (10:19→22:02)
[2022-03-21 10:24] VITALS: BP 120/80
[2022-03-21 18:00] VITALS: BP 111/74
[2022-03-21 19:12] LABS: CLARITY,URINE SLIGHTLY CLOUDY (Clear); COLOR,URINE YELLOW (Yellow); GLUCOSE, URINE NEGATIVE (Neg); KETONES,URINE NEGATIVE (Neg); LEUKOCYTE ESTERASE ,URINE NEGATIVE (Neg); NITRITES, URINE NEGATIVE (Neg); OCCULT BLOOD,URINE NEGATIVE (Neg); PH,URINE 7.5 (4.8-8.0); PROTEIN,URINE NEGATIVE (Neg)
[2022-03-21 19:17] LABS: UA COLLECTION TYPE NON-SPECIFIED
[2022-03-21 19:19] LABS: AMORPHOUS PHOSPHATES 3+; BACTERIA,URINE FEW /HPF (Neg); RBC,URINE 0-2 /HPF (0-2); SQUAMOUS EPITHELIAL CELL,UR FEW /LPF (FEW); URINE AMPHETAMINE SCREEN POSITIVE (Neg); URINE BARBITUATE SCREEN NEGATIVE (Neg); URINE BENZODIAZEPINES SCREEN NEGATIVE (Neg); URINE CANNABINOID SCREEN POSITIVE (Neg); URINE COCAINE SCREEN NEGATIVE (Neg); URINE METHADONE SCREEN NEGATIVE (Neg); URINE OPIATE SCREEN POSITIVE (Neg); URINE PHENCYCLIDINE SCREEN NEGATIVE (Neg); WBC,URINE 0-4 /HPF (0-4)
[2022-03-21 22:00] VITALS: BP 130/66
[2022-03-22] VITALS (7 sets, daily range): BP systolic 96–121; BP diastolic 62–79
[2022-03-22] MEDS: ceFAZolin/D5W- 1GM premix 50 ML IV SCH ×3 (00:43→16:27)
[2022-03-22] MEDS: HYDROcodone/acetaminophen 5mg/325mg tablet PO PRN ×5 (00:50→23:08)
[2022-03-22] MEDS: HYDROmorphone inj. 0.5 MG/0.5 ML DISP.SYRIN IV PRN ×4 (02:41→20:50)
[2022-03-22] MEDS ORDERED: LORazepam 2 mg/ml vial IV PRN (04:40)
[2022-03-22 06:01] LABS: BASOPHILS # (AUTO) 0.1 X10'3 (0-0.2); BASOPHILS % (AUTO) 1.1 % (0-1); EOSINOPHILS # (AUTO) 0.3 X10'3 (0-0.9); EOSINOPHILS % (AUTO) 6.3 % (0-6); HEMATOCRIT 36.6 % (35.0-45.0); LYMPHOCYTES % (AUTO) 37.9 % (21-51); MEAN CORPUSCULAR HEMOGLOBIN 29.2 PG (27.0-31.0); MEAN CORPUSCULAR HGB CONC 32.8 g/dL (33.0-36.5); MEAN PLATELET VOLUME 8.7 FL (7.4-10.4); MONOCYTES # (AUTO) 0.6 X10'3 (0-0.9); MONOCYTES % (AUTO) 11.1 % (2-12); NEUTROPHILS # (AUTO) 2.3 X10'3 (1.8-7.7); NEUTROPHILS % (AUTO) 43.6 % (42-75); PLATELET COUNT 278 X10'3 (140-440); RED BLOOD COUNT 4.11 X10'6 (4.20-5.60); RED CELL DISTRIBUTION WIDTH 14.5 % (11.5-14.5); WHITE BLOOD COUNT 5.3 X10'3 (4.5-11.0)
--- NOTE | 2022-03-22 06:15 | NUR ---
Problems reprioritized. Patient report given, questions answered & plan of care reviewed with earl Foley.
[2022-03-22 06:16] LABS: ALANINE AMINOTRANSFERASE 22 U/L (12-78); ALBUMIN 2.9 G/DL (3.4-5.0); ALBUMIN/GLOBULIN RATIO 0.8 (1.1-1.5); ALKALINE PHOSPHATASE 63 IU/L (46-116); ANION GAP 5 (8-16); ASPARTATE AMINO TRANSFERASE 24 U/L (10-37); BILIRUBIN,TOTAL 0.2 MG/DL (0.1-1.0); BLOOD UREA NITROGEN 12 MG/DL (7-18); BUN/CREATININE RATIO 19.7 (6.6-38.0); CHLORIDE 102 MMOL/L (99-107); CREATININE 0.61 MG/DL (0.40-0.90); GLUCOSE 96 MG/DL (70-104); MAGNESIUM 1.7 MG/DL (1.5-2.4); POTASSIUM 4.5 MMOL/L (3.5-5.1); SODIUM 140 MMOL/L (135-145); TOTAL CARBON DIOXIDE 32.8 MMOL/L (24-32); TOTAL PROTEIN 6.4 G/DL (6.4-8.2); eGFR > 90 ML/MIN
--- NOTE | 2022-03-22 06:33 | NUR ---
Patient in room [facility]. I have received report from DORIS OCONNOR and had the opportunity to ask questions and assume patient care.
[2022-03-22] MEDS: docusate sod 100mg capsule PO SCH ×2 (07:21→19:12)
[2022-03-22] MEDS: heparin, porcine 5000 units/ml vial SQ SCH ×2 (07:24→19:11)
[2022-03-22] MEDS: K and/or MAG REPLACEMENT MC SCH ×2 (08:00→19:10)
--- NOTE | 2022-03-22 11:15 | NUR ---
Student documentation: I have reviewed and agree with all interventions, assessments performed and documented by Ronni student nurse.
[2022-03-22] MEDS: LORazepam 1 MG tablet PO PRN ×2 (12:15→20:49)
--- NOTE | 2022-03-22 18:26 | NUR ---
Problems reprioritized. Patient report given, questions answered & plan of care reviewed with ashly elliott.
[2022-03-23] MEDS: ceFAZolin/D5W- 1GM premix 50 ML IV SCH ×2 (00:11→07:14)
[2022-03-23] MEDS: normal saline 1000ml 1,000 ML IV SCH (01:35)
[2022-03-23] MEDS: HYDROmorphone inj. 0.5 MG/0.5 ML DISP.SYRIN IV PRN ×3 (04:39→14:16)
[2022-03-23 05:56] LABS: BASOPHILS # (AUTO) 0.1 X10'3 (0-0.2); BASOPHILS % (AUTO) 1.2 % (0-1); EOSINOPHILS # (AUTO) 0.3 X10'3 (0-0.9); EOSINOPHILS % (AUTO) 5.2 % (0-6); HEMATOCRIT 38.2 % (35.0-45.0); HEMOGLOBIN 12.8 g/dl (12.0-16.0); LYMPHOCYTES # (AUTO) 1.8 X10'3 (1.1-4.8); LYMPHOCYTES % (AUTO) 31.4 % (21-51); MEAN CORPUSCULAR HEMOGLOBIN 29.7 PG (27.0-31.0); MEAN CORPUSCULAR HGB CONC 33.6 g/dL (33.0-36.5); MEAN CORPUSCULAR VOLUME 88.3 FL (78-98); MEAN PLATELET VOLUME 8.1 FL (7.4-10.4); MONOCYTES # (AUTO) 0.6 X10'3 (0-0.9); MONOCYTES % (AUTO) 9.9 % (2-12); NEUTROPHILS # (AUTO) 3.1 X10'3 (1.8-7.7); NEUTROPHILS % (AUTO) 52.3 % (42-75); PLATELET COUNT 304 X10'3 (140-440); RED BLOOD COUNT 4.32 X10'6 (4.20-5.60); RED CELL DISTRIBUTION WIDTH 14.2 % (11.5-14.5); WHITE BLOOD COUNT 5.9 X10'3 (4.5-11.0)
[2022-03-23 06:15] LABS: ALANINE AMINOTRANSFERASE 22 U/L (12-78); ALBUMIN 3.1 G/DL (3.4-5.0); ALBUMIN/GLOBULIN RATIO 0.8 (1.1-1.5); ALKALINE PHOSPHATASE 61 IU/L (46-116); ANION GAP 6 (8-16); ASPARTATE AMINO TRANSFERASE 17 U/L (10-37); BILIRUBIN,TOTAL 0.2 MG/DL (0.1-1.0); BLOOD UREA NITROGEN 13 MG/DL (7-18); BUN/CREATININE RATIO 25.5 (6.6-38.0); CALCIUM 9.1 MG/DL (8.5-10.1); CHLORIDE 102 MMOL/L (99-107); CREATININE 0.51 MG/DL (0.40-0.90); GLUCOSE 101 MG/DL (70-104); MAGNESIUM 1.7 MG/DL (1.5-2.4); POTASSIUM 4.1 MMOL/L (3.5-5.1); SODIUM 138 MMOL/L (135-145); TOTAL CARBON DIOXIDE 29.6 MMOL/L (24-32); TOTAL PROTEIN 6.8 G/DL (6.4-8.2); eGFR > 90 ML/MIN
[2022-03-23 07:00] VITALS: BP 133/78
[2022-03-23] MEDS: HYDROcodone/acetaminophen 5mg/325mg tablet PO PRN (07:14)
[2022-03-23] MEDS: docusate sod 100mg capsule PO SCH (07:14)
[2022-03-23] MEDS: heparin, porcine 5000 units/ml vial SQ SCH (07:15)
[2022-03-23] MEDS: K and/or MAG REPLACEMENT MC SCH (08:00)
[2022-03-23] MEDS ORDERED: HYDROcodone/acetaminophen 10/325mg tab PO PRN ×2 (08:30)
[2022-03-23] MEDS ORDERED: HYDROcodone/acetaminophen 5mg/325mg tablet PO ONE (08:30)
[2022-03-23] MEDS: LORazepam 1 MG tablet PO PRN (08:37)
[2022-03-23 10:00] VITALS: BP 111/79
[2022-03-23] MEDS ORDERED: DOCU-148 PO (11:52)
[2022-03-23] MEDS ORDERED: HYDR-3972 PO ×2 (11:52)
--- NOTE | 2022-03-23 15:33 | NUR ---
patient refused discharge wound care pictures as well as vital signs. iv removed tip intact, no complications. belongings sent with pt. pt left in stable condition via cab. pt educated on wound care follow up appointment
--- NOTE | 2022-03-24 15:07 | NUR ---
Patient called regarding prescription for [place] is unavailable at [facility] (preferred pharmacy). Preferred pharmacy changed to [facility] on [facility], per request of the patient. Paged hospitalist regarding resending prescription medications.
[2022-03-24] MEDS ORDERED: HYDR-3965 PO (15:09)
== END 2022-03-23 15:30 | disposition home or self-care (01) | DRG 197 ==
LOC: ER 19:51 → ED HOLD 03-21 01:36 → ORTHO 4S 03-21 10:15
PROVIDERS: ADMIT Internal Medicine; ATTEND Internal Medicine
DX: I96 Gangrene, not elsewhere classified (principal); L97.519 Non-pressure chronic ulcer of other part of right foot with unspecified severity; L03.031 Cellulitis of right toe; T33.832A Superficial frostbite of left toe(s), initial encounter; F15.90 Other stimulant use, unspecified, uncomplicated; F17.200 Nicotine dependence, unspecified, uncomplicated; L03.032 Cellulitis of left toe; T33.831A Superficial frostbite of right toe(s), initial encounter; L97.529 Non-pressure chronic ulcer of other part of left foot with unspecified severity; I10 Essential (primary) hypertension; G89.29 Other chronic pain; Y93.89 Activity, other specified; Y92.89 Other specified places as the place of occurrence of the external cause; Y99.8 Other external cause status; Z59.00 Homelessness unspecified; Z86.711 Personal history of pulmonary embolism; Z88.1 Allergy status to other antibiotic agents; Z88.8 Allergy status to other drugs, medicaments and biological substances
CPT/HCPCS: 36415; 73630; 80053; 80305; 81001; 83605; 83735; 84132; 84145; 85025; 87040; 87081; 93306; 97116; 97161; 97530; 99283; A6449; G0378; J0690; J1170; J1644; J2060; J7030

== ENCOUNTER 2022-04-16 17:09 | Emergency (ER) | payer MEDICAID ==
[~2022-04-16] VITALS: Ht 167.6 cm; Wt 63.6 kg
[~2022-04-16 17:09] MED LIST changes: -CEPH-585 PO; +DOCU-148 PO; +HYDR-3965 PO; -HYDR-4383 PO; -IBUP-1986 PO; -PER10325T PO
[2022-04-16 17:14] VITALS: BP 121/71
[2022-04-17] MEDS ORDERED: HYDROcodone/acetaminophen 10/325mg tab PO ONE (01:20)
== END 2022-04-17 06:10 | disposition home or self-care (01) ==
LOC: ER 17:09
DX: T33.822A Superficial frostbite of left foot, initial encounter (principal); T33.821A Superficial frostbite of right foot, initial encounter; M79.671 Pain in right foot; M79.672 Pain in left foot; I10 Essential (primary) hypertension; F15.20 Other stimulant dependence, uncomplicated; F12.90 Cannabis use, unspecified, uncomplicated; Z88.1 Allergy status to other antibiotic agents; Z88.8 Allergy status to other drugs, medicaments and biological substances; Z56.0 Unemployment, unspecified; Z59.00 Homelessness unspecified; X31.XXXA Exposure to excessive natural cold, initial encounter; Y93.89 Activity, other specified; Y92.89 Other specified places as the place of occurrence of the external cause; Y99.8 Other external cause status
CPT/HCPCS: 99283; A6222